=== PATIENT | male | born 1950 | race Caucasian/White ===

== ENCOUNTER 2016-07-11 17:23 | Emergency (ER) | payer OTHER ==
[~2016-07-11] VITALS: Ht 175.3 cm; Wt 222.0 kg
[~2016-07-11 17:23] MED LIST: A+D ZINC OXIDE113 GM TP; ALDACTONE25 MG PO; AMLODIPINE BESY10 MG PO; AMLODIPINE BESYL5 MG PO; ANTIFUNGAL15 G1 TP; ASPIRIN325 MG; ASPIRIN325 MG PO; ASPIRIN81 M2 PO; ATORVASTATIN CA80 MG PO; ATROVENT H200 INHALA IH; Aldactone PO; Augmentin PO; BACTRIM,SEPT1 TABLET PO; BACTROBAN CREAM15 GM TP; BACTROBAN TP; BAYER ASPIRIN325 M1 PO; BD INSULIN SYR 1 ML; BISOPROLOL FUMAR5 M1 PO; BISOPROLOL FUMAR5 MG PO; BUTALBITAL-APA1 EACH PO; CAPACET CAPSUL1 EACH PO; CARDIZEM CD240 MG PO; CEFTIN500 MG PO; CHLORZOXAZONE500 MG PO; COUMADIN2 MG PO; COUMADIN4 MG PO; COUMADIN5 MG PO; COUMADIN7.5 MG PO; CYMBALTA60 MG PO; Cardizem CD,LA,Cartia,Tiazac,Dilacor,Taztia PO; Cymbalta PO; DALIRESP500 MCG PO; DILAUDID2 MG PO; DILTIAZEM 24HR240 MG PO; DITROPAN XL10 MG PO; DITROPAN5 MG PO; DULCOLAX10 MG PR; DUONEB 2.5-0.5 M3 ML IH; ECOTRIN325 MG PO; ELAVIL50 MG PO; ERGOCALCIF50000 UNIT PO; ERGOCALCIFEROL; ESGIC 50-325-41 EACH PO; ESGIC CAPSULE1 EACH PO; Ecotrin PO; FEROSUL325 MG PO; FERROUS SULFAT325 MG PO; FIORICET,ESG1 TABLET PO; FLEET ENEMA-AD118 ML PR; FLORASTOR250 MG PO; FUROSEMIDE20 MG PO; FUROSEMIDE40 MG PO; FUROSEMIDE80 MG PO; Fioricet,Esgic,Repan PO; Flexeril PO; Furosemide PO; GABAPENTIN300 MG PO; HUMULIN R100 UNITS/ SC; HUMULIN R500 UNITS/ SC; HYDROPHOR OINT454 GM TP; IMDUR30 MG PO; IPRATR-ALBUTEROL3 ML IH; ISOSORBIDE DINI30 MG PO; ISOSORBIDE DINITRATE PO; ISOSORBIDE MONO30 MG PO; K-DUR10 MEQ PO; KETOCONAZOLE60 GM TP; LANTUS 10100 UNITS/ SC; LANTUS 3 M100 UNITS/ SC; LANTUS 3 M100 UNITS1 SC; LANTUS100 UNIT/1 SQ; LASIX40 MG PO; LASIX80 MG PO; LEVAQUIN750 MG PO; LEVEMIR FL100 UNIT/1 SC; LIPITOR80 MG PO; LISINOPRIL2.5 MG PO; LISINOPRIL20 MG PO; LITE COAT ASPI325 M1 PO; LOTRISONE15 GM TP; Lipitor PO; METOCLOPRAMIDE10 MG PO; METOLAZONE2.5 MG PO; MILK OF MAGN PO; MINOCIN PO; MINOCIN100 MG PO; MINOCIN50 MG PO; MINOCYCLINE HC100 M1 PO; MINOCYCLINE HC100 MG PO; NAPROSYN500 MG PO; NEURONTIN300 MG PO; NIASPAN,SLO-N1000 MG PO; NIASPAN1000 MG PO; NITROLINGUAL S4.9 GM MM; NIZORAL 2% CREA15 GM TP; NORVASC10 MG PO; NORVASC2.5 MG PO; NORVASC5 MG PO; NOVOLOG 10100 UNITS/ SC; NOVOLOG PE100 UNITS/ SC; NYSTOP60 GM; Niaspan,Slo-Niacin PO; Nizoral 2% Cream TP; Norvasc PO; OXAYDO5 MG PO; OXYBUTYNIN CHLOR5 M1 PO; OXYBUTYNIN CHLOR5 MG PO; OXYCODONE HCL5 M1 PO; OXYCODONE HCL5 MG; OXYCODONE HCL5 MG PO; OXYCODONE5 MG PO; OXYCONTIN20 MG; OXYCONTIN20 MG PO; OxyCONTIN PO; PANTOPRAZOLE SO40 MG PO; PARAFON FORTE500 MG PO; PLAVIX75 MG PO; PREDNISONE20 MG PO; PREDNISONE5 MG PO; PRINIVIL10 MG PO; PRINIVIL20 MG PO; PROAIR HFA8.5 GM IH; PROMETHAZINE HC25 M1 PO; PROTONIX40 MG PO; PROVENTIL HFA6.7 GM IH; PROVENTIL,2.5 MG/0.5 IH; PROVENTIL,2.5 MG/3 M IH; Proventil,Ventolin H IH; REGLAN10 M1 PO; REGLAN10 MG PO; REMEDY CALAZIM113 G2 TP; ROXICODONE5 MG PO; Reglan PO; SERTRALINE HCL100 MG PO; SINGULAIR10 MG PO; SPIRIVA1 INHALATI IH; SPIRONOLACTONE25 MG PO; ST. JOSEPH ASPI81 MG PO; SYMBICORT60 INHALA1; SYMBICORT60 INHALA1 IH; Singulair PO; Symbicort 80-4.5 mcg IH; THEO-24200 MG PO; THEO-DUR,THEOC100 MG PO; THEO-DUR,THEOC200 MG PO; Theo-Dur,Theocron PO; VITAMIN D; VITAMIN D-32000 UNI2 PO; VITAMIN D2000 UNIT PO; VITAMIN D22000 UNIT PO; VITAMIN D250000 UNIT PO; VITAMIN D32000 UNI1 PO; VITAMIN D5000 INTUN PO; VITD PO; Vitamin D, Drisdol PO; WARFARIN SODIUM4 MG PO; XARELTO20 MG PO; ZANAFLEX4 MG PO; ZEBETA5 MG PO; ZESTRIL,PRINIVI20 MG PO; Zebeta PO; Zestril,Prinivil PO; [UNRECOGNIZED DRUG - OTHER] IM; [UNRECOGNIZED DRUG - OTHER] PO; [UNRECOGNIZED DRUG - OTHER] PO; [UNRECOGNIZED DRUG - OTHER] PO; oxyCODONE PO
[2016-07-11 18:36] LABS: HEMATOCRIT 41.2 % (38.0-50.0); MCHC 31.6 G/DL (30.0-36.0); MCV 91.8 FL (86-99); MEAN PLAT.VOLUME 9.9 uM^3 (9.0-12.4); PLATELET COUNT 316 K/uL (156-360); RBC DIS.WIDTH-SD 58.6 % (39-53); RED BLOOD COUNT 4.49 M/uL (4.00-5.50)
[2016-07-11 18:41] LABS: CHLORIDE 92 mEq/L (99-109); EOSINOPHIL (%) 0.8 % (0-5); EOSINOPHIL COUNT 0.1 K/uL (0-0.3); IMMATURE GRANULOCYTE (%) 0.3 % (0.0-0.7); IMMATURE GRANULOCYTE COUNT 0.2 K/uL; LYMPHOCYTE COUNT 1.2 K/uL (1.0-2.8); MONOCYTE (%) 6.8 % (3-12); MONOCYTE COUNT 0.5 K/uL (0-0.8); NEUTROPHIL (%) 76.8 % (45-76); NEUTROPHIL COUNT 6.1 K/uL (1.8-6.4); POTASSIUM 3.4 mEq/L (3.7-5.4); SODIUM 142 mEq/L (136-147)
[2016-07-11 18:44] LABS: ANION GAP 16 MEQ/L (2-14)
[2016-07-11 18:45] LABS: TOTAL BILIRUBIN 0.5 mg/dL (0.0-1.0)
[2016-07-11 18:47] LABS: ALKALINE PHOSPHATASE 121 IU/L (3-129); GFR ESTIMATE (CALCULATED) > 59 mL/min/
[2016-07-11 18:48] LABS: UREA NITROGEN (BUN) 47 mg/dL (9-23)
[2016-07-11 18:51] LABS: GLUCOSE 402 mg/dL (70-99)
[2016-07-11 19:02] LABS: ADD MIUA? YES; BILIRUBIN SMALL; BLOOD TRACE; COLOR DK YELLOW ((YELLOW)); GLUCOSE (STRIP) 250; KETONES TRACE; LEUKOCYTES LARGE; NITRITE NEGATIVE; PH, URINE 8.5 (5-8); PROTEIN (STRIP) >=300; SPECIFIC GRAVITY 1.022 (1.000-1.030)
[2016-07-11] MEDS ORDERED: KEFLEX500 MG PO (22:09)
[2016-07-11 22:24] LABS: EPITHELIAL CELLS NONE SEEN; MUCUS NONE SEEN; RED BLOOD CELLS 0-5 /HPF (0-5)
[2016-07-11 22:25] LABS: AMORPHOUS PHOSPHATE CRYSTALS 2+; BACTERIA 2+; CASTS NONE SEEN /LPF; CRYSTALS PRESENT; UCUL ADDED? YES
[2016-07-12 02:01] VITALS: BP 104/51
== END 2016-07-12 03:31 | disposition home or self-care (01) ==
LOC: EME 17:23
PROVIDERS: Emergency Medicine
DX: N39.0 Urinary tract infection, site not specified (principal); E11.65 Type 2 diabetes mellitus with hyperglycemia; E66.01 Morbid (severe) obesity due to excess calories; Z68.45 Body mass index [BMI] 70 or greater, adult; I10 Essential (primary) hypertension; I25.2 Old myocardial infarction; J45.909 Unspecified asthma, uncomplicated; Z86.711 Personal history of pulmonary embolism; Z86.14 Personal history of Methicillin resistant Staphylococcus aureus infection; Z98.61 Coronary angioplasty status; Z79.4 Long term (current) use of insulin; Z79.82 Long term (current) use of aspirin; Z79.01 Long term (current) use of anticoagulants; Z87.891 Personal history of nicotine dependence
CPT/HCPCS: 80053; 81003; 82948; 83605; 85025; 87040; 87077; 87086; 87186; 99281; 99285; J0696; J2270; J2405; J7030; J7050

== ENCOUNTER 2016-07-16 17:17 | Observation (INO) | payer OTHER ==
[~2016-07-16] VITALS: Ht 175.3 cm; Wt 228.0 kg
[~2016-07-16 17:17] MED LIST changes: +KEFLEX500 MG PO
[2016-07-16 20:20] LABS: EOSINOPHIL (%) 2.6 % (0-5); EOSINOPHIL COUNT 0.2 K/uL (0-0.3); HEMATOCRIT 33.5 % (38.0-50.0); IMMATURE GRANULOCYTE (%) 0.6 % (0.0-0.7); IMMATURE GRANULOCYTE COUNT 0.4 K/uL; LYMPHOCYTE COUNT 1.2 K/uL (1.0-2.8); MCH 29.6 PG (29.0-34.0); MCHC 31.9 G/DL (30.0-36.0); MCV 92.8 FL (86-99); MEAN PLAT.VOLUME 11.2 uM^3 (9.0-12.4); MONOCYTE (%) 6.6 % (3-12); MONOCYTE COUNT 0.4 K/uL (0-0.8); NEUTROPHIL (%) 70.5 % (45-76); NEUTROPHIL COUNT 4.4 K/uL (1.8-6.4); PLATELET COUNT 245 K/uL (156-360); RBC DIS.WIDTH-CV 16.8 % (11.8-14.6); RBC DIS.WIDTH-SD 54.9 % (39-53); RED BLOOD COUNT 3.61 M/uL (4.00-5.50); WHITE BLOOD COUNT 6.2 K/uL (4.1-10.2)
[2016-07-16 20:28] LABS: CHLORIDE 90 mEq/L (99-109)
[2016-07-16 20:31] LABS: GLUCOSE 237 mg/dL (70-99); POTASSIUM 4.1 mEq/L (3.7-5.4); SODIUM 134 mEq/L (136-147)
[2016-07-16 20:32] LABS: ANION GAP 13 MEQ/L (2-14)
[2016-07-16 20:53] LABS: ALKALINE PHOSPHATASE 91 IU/L (3-129); GFR ESTIMATE (CALCULATED) 25 mL/min/; TOTAL BILIRUBIN 0.3 mg/dL (0.0-1.0); UREA NITROGEN (BUN) 77 mg/dL (9-23)
[2016-07-16 21:00] LABS: ADD MIUA? YES; BILIRUBIN NEGATIVE; BLOOD SMALL; COLOR YELLOW ((YELLOW)); GLUCOSE (STRIP) 100; KETONES NEGATIVE; LEUKOCYTES MODERATE; NITRITE NEGATIVE; PROTEIN (STRIP) 30; SPECIFIC GRAVITY 1.027 (1.000-1.030); UROBILINOGEN 0.2 MG/DL (0.2-1.0)
[2016-07-16 21:41] LABS: RED BLOOD CELLS 0-5 /HPF (0-5)
[2016-07-16 21:42] LABS: BACTERIA RARE; CASTS NONE SEEN /LPF; CRYSTALS NONE SEEN; EPITHELIAL CELLS NONE SEEN; MUCUS NONE SEEN; UCUL ADDED? NO
[2016-07-16] MEDS ORDERED: COUMADIN6 MG PO (23:56)
[2016-07-17] MEDS ORDERED: NOVOLOG PE100 UNITS/ SC
[2016-07-17] MEDS ORDERED: LANTUS 3 M100 UNITS1 SC
[2016-07-17] MEDS ORDERED: OXYBUTYNIN CHLOR5 M1 PO (00:01)
[2016-07-17] MEDS ORDERED: DALIRESP500 MCG PO (00:02)
[2016-07-17 01:17] LABS: POINT-OF-CARE METER ID UU13113702
[2016-07-17 01:27] LABS: INTER. NORMALIZED RATIO 1.6
[2016-07-17 02:27] LABS: TROP-I INTERPRETATION NEGATIVE; TROPONIN-I 0.02 ng/mL (0.0-0.30)
[2016-07-17 02:41] VITALS: BP 111/59
[2016-07-17 04:30] VITALS: BP 136/62
[2016-07-17 08:17] LABS: HEMATOCRIT 34.1 % (38.0-50.0); MCHC 30.2 G/DL (30.0-36.0); MCV 92.7 FL (86-99); MEAN PLAT.VOLUME 11.4 uM^3 (9.0-12.4); PLATELET COUNT 243 K/uL (156-360); RBC DIS.WIDTH-CV 16.9 % (11.8-14.6); RBC DIS.WIDTH-SD 57.5 % (39-53); RED BLOOD COUNT 3.68 M/uL (4.00-5.50); WHITE BLOOD COUNT 5.4 K/uL (4.1-10.2)
[2016-07-17 08:33] LABS: POINT-OF-CARE METER ID UU14162513
[2016-07-17 08:42] VITALS: BP 146/72
[2016-07-17 08:43] LABS: ALKALINE PHOSPHATASE 89 IU/L (3-129); ANION GAP 11 MEQ/L (2-14); CHLORIDE 91 MEQ/L (99-109); GFR ESTIMATE (CALCULATED) 36 mL/min/; GLUCOSE 136 mg/dL (70-99); SAMPLE HEMOLYSIS CHECK 0; SAMPLE ICTERIC CHECK 0; SAMPLE LIPEMIA CHECK 0; SODIUM 134 MEQ/L (136-147); TOTAL BILIRUBIN 0.3 MG/DL (0.0-1.0); UREA NITROGEN (BUN) 72 mg/dL (9-23)
[2016-07-17 08:51] LABS: EOSINOPHIL (%) 4.1 % (0-5); EOSINOPHIL COUNT 0.2 K/uL (0-0.3); IMMATURE GRANULOCYTE (%) 0.4 % (0.0-0.7); LYMPHOCYTE COUNT 1.3 K/uL (1.0-2.8); MONOCYTE (%) 9.6 % (3-12); MONOCYTE COUNT 0.5 K/uL (0-0.8); NEUTROPHIL (%) 62.3 % (45-76); NEUTROPHIL COUNT 3.4 K/uL (1.8-6.4)
[2016-07-17 09:19] LABS: TROP-I INTERPRETATION NEGATIVE; TROPONIN-I 0.02 ng/mL (0.0-0.30)
[2016-07-17 12:00] VITALS: BP 156/71
[2016-07-17 12:25] LABS: POINT-OF-CARE METER ID UU14162513
[2016-07-17 13:40] LABS: TROP-I INTERPRETATION NEGATIVE; TROPONIN-I 0.02 ng/mL (0.0-0.30)
[2016-07-17 13:43] LABS: INTER. NORMALIZED RATIO 1.5
[2016-07-17 16:00] VITALS: BP 137/87
[2016-07-17 20:27] VITALS: BP 85/50
[2016-07-17 21:28] LABS: POINT-OF-CARE METER ID UU13113700
[2016-07-18 00:37] VITALS: BP 112/55
[2016-07-18 04:22] VITALS: BP 134/58
[2016-07-18 04:41] LABS: POINT-OF-CARE METER ID UU14162513
[2016-07-18 06:42] LABS: HEMATOCRIT 29.9 % (38.0-50.0); MCH 29.4 PG (29.0-34.0); MCHC 32.1 G/DL (30.0-36.0); MCV 91.4 FL (86-99); MEAN PLAT.VOLUME 11.3 uM^3 (9.0-12.4); PLATELET COUNT 257 K/uL (156-360); RBC DIS.WIDTH-CV 16.8 % (11.8-14.6); RBC DIS.WIDTH-SD 55.6 % (39-53); RED BLOOD COUNT 3.27 M/uL (4.00-5.50); WHITE BLOOD COUNT 4.7 K/uL (4.1-10.2)
[2016-07-18 06:53] LABS: INTER. NORMALIZED RATIO 1.6; PROTHROMBIN TIME 16.7 (9.2-11.2)
[2016-07-18 07:01] LABS: ANION GAP 8 MEQ/L (2-14); CHLORIDE 92 MEQ/L (99-109); GFR ESTIMATE (CALCULATED) 43 mL/min/; GLUCOSE 155 mg/dL (70-99); POTASSIUM 4.3 MEQ/L (3.7-5.4); SAMPLE HEMOLYSIS CHECK 0; SAMPLE ICTERIC CHECK 0; SAMPLE LIPEMIA CHECK 0; SODIUM 134 MEQ/L (136-147); UREA NITROGEN (BUN) 74 mg/dL (9-23)
[2016-07-18 07:06] LABS: EOSINOPHIL (%) 4.5 % (0-5); EOSINOPHIL COUNT 0.2 K/uL (0-0.3); IMMATURE GRANULOCYTE (%) 0.6 % (0.0-0.7); LYMPHOCYTE COUNT 1.2 K/uL (1.0-2.8); MONOCYTE (%) 6.2 % (3-12); MONOCYTE COUNT 0.3 K/uL (0-0.8); NEUTROPHIL (%) 63.1 % (45-76)
[2016-07-18 08:13] VITALS: BP 138/65
[2016-07-18 08:46] LABS: POINT-OF-CARE METER ID UU14162513
[2016-07-18] MEDS ORDERED: KEFLEX500 MG PO (10:23)
[2016-07-18 10:51] LABS: CREATINE KINASE 72 IU/L (1-294); TOTAL CK 72 IU/L (1-294)
[2016-07-18 11:22] LABS: CK-MB 2.6 ng/mL (0.0-4.9)
[2016-07-18 12:12] VITALS: BP 124/58
[2016-07-18 12:43] LABS: POINT-OF-CARE METER ID UU14162513
== END 2016-07-18 14:46 | disposition home or self-care (01) ==
LOC: EME 17:17 → 5WEST 07-17 00:32 → EDOF 07-17 00:32 → 5WEST 07-17 01:31
PROVIDERS: Emergency Medicine; Internal Medicine; Student in an Organized Health Care Education/Training Program
DX: N39.0 Urinary tract infection, site not specified (principal); N17.9 Acute kidney failure, unspecified; E66.01 Morbid (severe) obesity due to excess calories; Z68.45 Body mass index [BMI] 70 or greater, adult; M25.511 Pain in right shoulder; M79.89 Other specified soft tissue disorders; E11.65 Type 2 diabetes mellitus with hyperglycemia; I10 Essential (primary) hypertension; E78.5 Hyperlipidemia, unspecified; I25.10 Atherosclerotic heart disease of native coronary artery without angina pectoris; Z98.61 Coronary angioplasty status; Z74.01 Bed confinement status; Z86.74 Personal history of sudden cardiac arrest; I25.2 Old myocardial infarction; G47.33 Obstructive sleep apnea (adult) (pediatric); I48.91 Unspecified atrial fibrillation; Z97.8 Presence of other specified devices; Z86.19 Personal history of other infectious and parasitic diseases; Z87.891 Personal history of nicotine dependence; Z79.01 Long term (current) use of anticoagulants; Z79.82 Long term (current) use of aspirin; Z79.4 Long term (current) use of insulin; Z91.19 Patient's noncompliance with other medical treatment and regimen
CPT/HCPCS: 80048; 80048 91; 80053; 81003; 82550; 82553; 82948; 83605; 84484; 85025; 85027; 85610; 87040; 93005; 93971; 94640; 94640 76; 94760; 94799; 99202; 99281; 99285; G0378; J0696; J1815; J7030; J7050

== ENCOUNTER 2016-11-09 16:42 | Inpatient (IN) | payer OTHER ==
[~2016-11-09] VITALS: Ht 175.3 cm; Wt 181.0 kg
[~2016-11-09 16:42] MED LIST changes: +COUMADIN6 MG PO
[2016-11-09 17:13] LABS: HEMATOCRIT 34.1 % (38.0-50.0); MCH 28.6 PG (29.0-34.0); MCHC 29.6 G/DL (30.0-36.0); MCV 96.6 FL (86-99); MEAN PLAT.VOLUME 9.2 uM^3 (9.0-12.4); PLATELET COUNT 339 K/uL (156-360); RBC DIS.WIDTH-CV 14.6 % (11.8-14.6); RBC DIS.WIDTH-SD 51.4 % (39-53); RED BLOOD COUNT 3.53 M/uL (4.00-5.50); WHITE BLOOD COUNT 11.1 K/uL (4.1-10.2)
[2016-11-09 17:22] LABS: CHLORIDE 88 mEq/L (99-109); POTASSIUM 4.3 mEq/L (3.7-5.4); SODIUM 137 mEq/L (136-147)
[2016-11-09 17:23] LABS: GLUCOSE 227 mg/dL (70-99)
[2016-11-09 17:24] LABS: INTER. NORMALIZED RATIO 1.4; PROTHROMBIN TIME 14.8 (9.2-11.2)
[2016-11-09 17:25] LABS: ANION GAP 11 MEQ/L (2-14)
[2016-11-09 17:27] LABS: GFR ESTIMATE (CALCULATED) 43 mL/min/
[2016-11-09 17:28] LABS: UREA NITROGEN (BUN) 54 mg/dL (9-23)
[2016-11-09 17:33] LABS: TROP-I INTERPRETATION NEGATIVE; TROPONIN-I 0.01 ng/mL (0.0-0.30)
[2016-11-09 22:11] LABS: CARBOXY HGB 0.3 % (0-5); METHEMOGLOBIN 0.4 % (0-1.5)
[2016-11-09 22:12] LABS: COMMENTS - BLOOD GASES A+C+ VENIUS BLOOD; DEVICE NC; O2 FLOW 5 L/MIN; PCO2 > 128 mm Hg (35-45); PO2 25 mm Hg (80-100); SITE RR; TOTAL RESP RATE 16 resp/min; pH 7.15 (7.35-7.45)
[2016-11-09 22:17] LABS: TOTAL BILIRUBIN 0.3 mg/dL (0.0-1.0)
[2016-11-09 22:18] LABS: ALKALINE PHOSPHATASE 118 IU/L (3-129)
[2016-11-09 22:21] LABS: DIRECT BILIRUBIN 0.2 mg/dL (0.0-0.3)
[2016-11-09 23:54] LABS: ADD MIUA? YES; BILIRUBIN SMALL; BLOOD LARGE; COLOR RED ((YELLOW)); GLUCOSE (STRIP) NEGATIVE; KETONES TRACE; LEUKOCYTES MODERATE; NITRITE NEGATIVE; PROTEIN (STRIP) 100; UROBILINOGEN 0.2 MG/DL (0.2-1.0)
[2016-11-09 23:58] LABS: BACTERIA 2+ /HPF; CASTS PRESENT /LPF; EPITHELIAL CELLS RARE /HPF; MUCUS 1+ /LPF; RED BLOOD CELLS TNTC /HPF (0-5); UCUL ADDED? YES; WHITE BLOOD CELLS TNTC /HPF (0-5)
[2016-11-09 23:59] LABS: COARSE GRANULAR CASTS RARE /LPF
[2016-11-10 00:20] VITALS: BP 151/54
[2016-11-10 04:12] LABS: METH RESISTANT S AUREUS PCR POSITIVE (NEGATIVE)
[2016-11-10 04:19] LABS: PROBE CHECK PASS
[2016-11-10 05:24] VITALS: BP 126/72
[2016-11-10 09:17] LABS: BASE EXCESS 14.1 mEq/L (-3 to +3); CARBOXY HGB 0.5 % (0-5); METHEMOGLOBIN 1.3 % (0-1.5)
[2016-11-10 09:18] LABS: BICARBONATE 40.5 mEq/L (22-26); DEVICE NC; O2 FLOW 3 L/MIN; PCO2 61 mm Hg (35-45); PO2 50 mm Hg (80-100); SITE RR; TOTAL RESP RATE 45 resp/min; pH 7.43 (7.35-7.45)
[2016-11-10 09:19] LABS: COMMENTS - BLOOD GASES A+C+
[2016-11-10 09:29] VITALS: BP 91/73
[2016-11-10 09:56] LABS: HEMATOCRIT 31.1 % (38.0-50.0); MCHC 30.9 G/DL (30.0-36.0); MEAN PLAT.VOLUME 9.9 uM^3 (9.0-12.4); PLATELET COUNT 292 K/uL (156-360); RBC DIS.WIDTH-CV 14.2 % (11.8-14.6); RED BLOOD COUNT 3.31 M/uL (4.00-5.50); WHITE BLOOD COUNT 8.9 K/uL (4.1-10.2)
[2016-11-10 10:04] LABS: CHLORIDE 92 mEq/L (99-109); POTASSIUM 5.1 mEq/L (3.7-5.4); SODIUM 138 mEq/L (136-147)
[2016-11-10 10:05] LABS: MAGNESIUM 1.7 mg/dL (1.3-2.7)
[2016-11-10 10:07] LABS: GLUCOSE 271 mg/dL (70-99)
[2016-11-10 10:08] LABS: ANION GAP 11 MEQ/L (2-14)
[2016-11-10 10:08] LABS: INTER. NORMALIZED RATIO 1.4; PROTHROMBIN TIME 14.2 (9.2-11.2)
[2016-11-10 10:09] LABS: TOTAL BILIRUBIN 0.3 mg/dL (0.0-1.0)
[2016-11-10 10:10] LABS: ALKALINE PHOSPHATASE 109 IU/L (3-129); GFR ESTIMATE (CALCULATED) 50 mL/min/
[2016-11-10 10:11] LABS: PTT 37.9 (25-32)
[2016-11-10 10:11] LABS: UREA NITROGEN (BUN) 51 mg/dL (9-23)
[2016-11-10 11:25] LABS: POINT-OF-CARE METER ID UU13113781
[2016-11-10 12:22] VITALS: BP 170/90
[2016-11-10 16:22] VITALS: BP 146/72
[2016-11-10 16:52] LABS: POINT-OF-CARE METER ID UU13113781
[2016-11-10 19:30] VITALS: BP 126/90
[2016-11-11] VITALS (7 sets, daily range): BP systolic 131–181; BP diastolic 71–98
[2016-11-11 07:40] LABS: EOSINOPHIL (%) 0 % (0-5); IMMATURE GRANULOCYTE (%) 1.5 % (0.0-0.7); IMMATURE GRANULOCYTE COUNT 0.2 K/uL; INSTRUMENT ABS NEUTROPHIL CT 9.8 K/uL; LYMPHOCYTE COUNT 0.8 K/uL (1.0-2.8); MCH 28.1 PG (29.0-34.0); MCHC 31.2 G/DL (30.0-36.0); MCV 90.2 FL (86-99); MEAN PLAT.VOLUME 10.7 uM^3 (9.0-12.4); MONOCYTE (%) 2.3 % (3-12); MONOCYTE COUNT 0.3 K/uL (0-0.8); NEUTROPHIL (%) 88.7 % (45-76); NEUTROPHIL COUNT 9.8 K/uL (1.8-6.4); RBC DIS.WIDTH-CV 14.5 % (11.8-14.6); RBC DIS.WIDTH-SD 47.4 % (39-53); RED BLOOD COUNT 3.66 M/uL (4.00-5.50)
[2016-11-11 07:40] LABS: INTER. NORMALIZED RATIO 1.6; PROTHROMBIN TIME 16.9 (9.2-11.2)
[2016-11-11 07:42] LABS: PLATELET COUNT 385 K/uL (156-360)
[2016-11-11 07:57] LABS: ANION GAP 15 MEQ/L (2-14); CHLORIDE 88 MEQ/L (99-109); GFR ESTIMATE (CALCULATED) > 59 mL/min/; GLUCOSE 284 mg/dL (70-99); POTASSIUM 4.4 MEQ/L (3.7-5.4); SAMPLE HEMOLYSIS CHECK 0; SAMPLE ICTERIC CHECK 0; SAMPLE LIPEMIA CHECK 0; SODIUM 135 MEQ/L (136-147); UREA NITROGEN (BUN) 55 mg/dL (9-23)
[2016-11-11 08:21] LABS: POINT-OF-CARE METER ID UU13113781
[2016-11-11 11:03] LABS: POINT-OF-CARE METER ID UU13113781
[2016-11-11 15:59] LABS: POINT-OF-CARE METER ID UU14188625
[2016-11-11 20:09] LABS: BICARBONATE 39.5 mEq/L (22-26); CARBOXY HGB 0.4 % (0-5); METHEMOGLOBIN 1.1 % (0-1.5); PO2 45 mm Hg (80-100)
[2016-11-11 20:10] LABS: COMMENTS - BLOOD GASES C+A+; PCO2 90 mm Hg (35-45); SITE RR; pH 7.25 (7.35-7.45)
[2016-11-11 20:11] LABS: DEVICE HFNC; O2 FLOW 15 L/MIN; TOTAL RESP RATE 22 resp/min
[2016-11-11 21:40] LABS: BASE EXCESS -2.2 mEq/L (-3 to +3); BICARBONATE 24.6 mEq/L (22-26); CARBOXY HGB 0.2 % (0-5); METHEMOGLOBIN 0.8 % (0-1.5); PCO2 50 mm Hg (35-45); PO2 72 mm Hg (80-100)
[2016-11-11 21:41] LABS: COMMENTS - BLOOD GASES C+; DEVICE AMBU; FI02 100 %; O2 FLOW 15 L/MIN; PEEP 20 CM/H20; SITE ALINE
[2016-11-11 22:09] LABS: HEMATOCRIT 36.4 % (38.0-50.0); MCH 28.9 PG (29.0-34.0); MCHC 31.3 G/DL (30.0-36.0); MCV 92.2 FL (86-99); PLATELET COUNT 552 K/uL (156-360); RBC DIS.WIDTH-CV 14.6 % (11.8-14.6); RBC DIS.WIDTH-SD 49.3 % (39-53); RED BLOOD COUNT 3.95 M/uL (4.00-5.50); WHITE BLOOD COUNT 26.6 K/uL (4.1-10.2)
[2016-11-11 22:17] LABS: ANION GAP 20 MEQ/L (2-14); CHLORIDE 90 MEQ/L (99-109); DIRECT BILIRUBIN 0.1 mg/dL (0.0-0.3); POTASSIUM 4.6 MEQ/L (3.7-5.4); SAMPLE HEMOLYSIS CHECK 0; SAMPLE ICTERIC CHECK 0; SAMPLE LIPEMIA CHECK 0; SODIUM 133 MEQ/L (136-147); TOTAL BILIRUBIN 0.6 MG/DL (0.0-1.0)
[2016-11-11 22:26] LABS: ALKALINE PHOSPHATASE 125 IU/L (3-129); GFR ESTIMATE (CALCULATED) 47 mL/min/; GLUCOSE 505 mg/dL (70-99); UREA NITROGEN (BUN) 59 mg/dL (9-23)
[2016-11-11 22:29] LABS: TROP-I INTERPRETATION INDETERMINATE; TROPONIN-I 0.36 ng/mL (0.0-0.30)
[2016-11-11 22:36] LABS: METH RESISTANT S AUREUS PCR POSITIVE (NEGATIVE)
[2016-11-11 22:39] LABS: PROBE CHECK PASS
[2016-11-12 00:30] VITALS: BP 170/98
[2016-11-12 00:49] LABS: BASE EXCESS 2.6 mEq/L (-3 to +3); BICARBONATE 27.2 mEq/L (22-26); CARBOXY HGB 0.2 % (0-5); COMMENTS - BLOOD GASES C+; DEVICE 840; FI02 100 %; MECHANICAL RATE 24 resp/min; METHEMOGLOBIN 1.2 % (0-1.5); MODE AC; PCO2 41 mm Hg (35-45); PEEP 20 CM/H20; PO2 270 mm Hg (80-100); SITE ALINE; TIDAL VOLUME 600 ML; TOTAL RESP RATE 24 resp/min; pH 7.43 (7.35-7.45)
[2016-11-12 01:00] VITALS: BP 0/0; BP 170/98
[2016-11-12 03:00] VITALS: BP 0/0; BP 170/98
[2016-11-12 05:26] LABS: BASOPHIL COUNT 0.1 K/uL (0-0.1); EOSINOPHIL (%) 0 % (0-5); IMMATURE GRANULOCYTE (%) 1.8 % (0.0-0.7); IMMATURE GRANULOCYTE COUNT 0.6 K/uL; INSTRUMENT ABS NEUTROPHIL CT 29.6 K/uL; LYMPHOCYTE COUNT 0.7 K/uL (1.0-2.8); MEAN PLAT.VOLUME 9.9 uM^3 (9.0-12.4); MONOCYTE (%) 4.7 % (3-12); MONOCYTE COUNT 1.5 K/uL (0-0.8); NEUTROPHIL (%) 91.2 % (45-76); NEUTROPHIL COUNT 29.6 K/uL (1.8-6.4); PLATELET COUNT 494 K/uL (156-360)
[2016-11-12 05:41] LABS: INTER. NORMALIZED RATIO 2.5
[2016-11-12 05:42] LABS: PROTHROMBIN TIME 26.4 (9.2-11.2)
[2016-11-12 05:44] LABS: TROP-I INTERPRETATION POSITIVE
[2016-11-12 06:09] LABS: TROPONIN-I 26.45 ng/mL (0.0-0.30)
[2016-11-12 06:19] LABS: HEMATOCRIT 34.3 % (38.0-50.0); MCH 29.1 PG (29.0-34.0); MCHC 32.7 G/DL (30.0-36.0); MCV 89.1 FL (86-99); RBC DIS.WIDTH-CV 14.6 % (11.8-14.6); RBC DIS.WIDTH-SD 47.2 % (39-53); RED BLOOD COUNT 3.85 M/uL (4.00-5.50)
[2016-11-12 06:28] LABS: WHITE BLOOD COUNT 32.5 K/uL (4.1-10.2)
[2016-11-12 06:31] LABS: ANION GAP 18 MEQ/L (2-14); CHLORIDE 92 MEQ/L (99-109); GFR ESTIMATE (CALCULATED) 38 mL/min/; GLUCOSE 318 mg/dL (70-99); POTASSIUM 3.7 MEQ/L (3.7-5.4); SAMPLE HEMOLYSIS CHECK 0; SAMPLE ICTERIC CHECK 0; SAMPLE LIPEMIA CHECK 0; SODIUM 136 MEQ/L (136-147); UREA NITROGEN (BUN) 67 mg/dL (9-23)
[2016-11-12 07:04] LABS: Estimated Average Glucose 192 mg/dL (70-123); HEMOGLOBIN A1c (GLYCOHEMOGLOB) 8.3 % HGB (Below 5.7)
[2016-11-12 07:38] LABS: POINT-OF-CARE USER ID 612031313
[2016-11-12 08:54] LABS: POINT-OF-CARE USER ID 612031313
[2016-11-12 09:51] LABS: MAGNESIUM 1.9 mg/dl (1.3-2.7)
[2016-11-12 09:54] LABS: POINT-OF-CARE USER ID 612031313
[2016-11-12 10:00] VITALS: BP 130/81
[2016-11-12 11:02] LABS: ADD MIUA? YES; BILIRUBIN NEGATIVE; BLOOD LARGE; COLOR YELLOW ((YELLOW)); GLUCOSE (STRIP) NEGATIVE; KETONES NEGATIVE; LEUKOCYTES MODERATE; NITRITE NEGATIVE; PROTEIN (STRIP) 100; SPECIFIC GRAVITY 1.015 (1.000-1.030); UROBILINOGEN 0.2 MG/DL (0.2-1.0)
[2016-11-12 11:23] LABS: BACTERIA RARE /HPF; EPITHELIAL CELLS RARE /HPF; GRANULAR CASTS 0-5 /LPF; MUCUS TRACE /LPF; WHITE BLOOD CELLS 20-30 /HPF (0-5)
[2016-11-12] MEDS ORDERED: LANTUS 10100 UNITS/ SC (11:31)
[2016-11-12] MEDS ORDERED: IMDUR30 MG PO (11:32)
[2016-11-12] MEDS ORDERED: ZESTRIL10 MG PO (11:32)
[2016-11-12] MEDS ORDERED: FUROSEMIDE40 MG PO (11:32)
[2016-11-12] MEDS ORDERED: NEURONTIN300 MG PO (11:32)
[2016-11-12] MEDS ORDERED: OXYBUTYNIN CHLOR5 M1 PO (11:33)
[2016-11-12] MEDS ORDERED: ELAVIL50 MG PO (11:33)
[2016-11-12] MEDS ORDERED: REGLAN10 MG PO (11:33)
[2016-11-12] MEDS ORDERED: PROTONIX40 MG PO (11:34)
[2016-11-12] MEDS ORDERED: SYMBICORT60 INHALA1 IH (11:35)
[2016-11-12] MEDS ORDERED: METOLAZONE2.5 MG PO (11:35)
[2016-11-12] MEDS ORDERED: OXAYDO5 MG PO (11:35)
[2016-11-12] MEDS ORDERED: DALIRESP500 MCG PO (11:36)
[2016-11-12] MEDS ORDERED: ATROVENT H200 INHALA IH (11:36)
[2016-11-12] MEDS ORDERED: ZANAFLEX4 M1 PO (11:36)
[2016-11-12] MEDS ORDERED: ZOLOFT100 MG PO (11:37)
[2016-11-12] MEDS ORDERED: NORVASC2.5 MG PO (11:37)
[2016-11-12] MEDS ORDERED: LIPITOR80 MG PO (11:38)
[2016-11-12] MEDS ORDERED: VENTOLIN HFA18 GM IH (11:38)
[2016-11-12] MEDS ORDERED: VITAMIN D2000 UNIT PO (11:39)
[2016-11-12] MEDS ORDERED: FEOSOL325 MG PO (11:39)
[2016-11-12] MEDS ORDERED: COUMADIN4 MG PO (11:39)
[2016-11-12] MEDS ORDERED: LO-DOSE ASPIRIN81 M1 PO (11:39)
[2016-11-12] MEDS ORDERED: DUONEB 2.5-0.5 M3 ML AEROSOL (11:40)
[2016-11-12] MEDS ORDERED: NOVOLOG 10100 UNITS/ SC (11:48)
[2016-11-12 11:53] LABS: POINT-OF-CARE USER ID 612031313
[2016-11-12 13:23] LABS: TROP-I INTERPRETATION POSITIVE; TROPONIN-I 31.16 ng/mL (0.0-0.30)
[2016-11-12 13:42] LABS: POINT-OF-CARE USER ID 612031313
[2016-11-12 15:42] LABS: POINT-OF-CARE USER ID 612031313
[2016-11-12 17:47] LABS: TROP-I INTERPRETATION POSITIVE; TROPONIN-I 29.96 ng/mL (0.0-0.30)
[2016-11-12 17:53] LABS: POINT-OF-CARE USER ID 612031313
[2016-11-12 17:56] LABS: INTER. NORMALIZED RATIO 4.2; PROTHROMBIN TIME 44.9 (9.2-11.2)
[2016-11-12 18:00] VITALS: BP 101/83
[2016-11-13] VITALS (18 sets, daily range): BP systolic 110–150; BP diastolic 66–98
[2016-11-13 01:23] LABS: TROP-I INTERPRETATION POSITIVE; TROPONIN-I 26.45 ng/mL (0.0-0.30)
[2016-11-13 02:04] LABS: CHLORIDE 98 mEq/L (99-109); POTASSIUM 4.1 mEq/L (3.7-5.4); SODIUM 138 mEq/L (136-147)
[2016-11-13 02:06] LABS: GLUCOSE 211 mg/dL (70-99)
[2016-11-13 02:07] LABS: ANION GAP 17 MEQ/L (2-14)
[2016-11-13 02:10] LABS: GFR ESTIMATE (CALCULATED) 32 mL/min/; UREA NITROGEN (BUN) 77 mg/dL (9-23)
[2016-11-13 06:07] LABS: TROP-I INTERPRETATION POSITIVE; TROPONIN-I 20.53 ng/mL (0.0-0.30)
[2016-11-13 06:29] LABS: HEMATOCRIT 31.9 % (38.0-50.0); INTER. NORMALIZED RATIO 3.5; MCH 29.6 PG (29.0-34.0); MCHC 32.6 G/DL (30.0-36.0); MCV 90.9 FL (86-99); PROTHROMBIN TIME 37.4 (9.2-11.2); RBC DIS.WIDTH-CV 14.6 % (11.8-14.6); RBC DIS.WIDTH-SD 48.8 % (39-53); RED BLOOD COUNT 3.51 M/uL (4.00-5.50)
[2016-11-13 06:32] LABS: WHITE BLOOD COUNT 17.9 K/uL (4.1-10.2)
[2016-11-13 06:46] LABS: EOSINOPHIL (%) 0 % (0-5); IMMATURE GRANULOCYTE (%) 1.1 % (0.0-0.7); IMMATURE GRANULOCYTE COUNT 0.2 K/uL; INSTRUMENT ABS NEUTROPHIL CT 15.7 K/uL; LYMPHOCYTE COUNT 1.3 K/uL (1.0-2.8); MEAN PLAT.VOLUME 11.1 uM^3 (9.0-12.4); MONOCYTE (%) 3.6 % (3-12); MONOCYTE COUNT 0.7 K/uL (0-0.8); NEUTROPHIL COUNT 15.7 K/uL (1.8-6.4); PLAT.SUFFICIENCY ADEQUATE
[2016-11-13 06:50] LABS: DIRECT BILIRUBIN 0.3 mg/dL (0.0-0.3); MAGNESIUM 1.9 mg/dl (1.3-2.7); TOTAL BILIRUBIN 0.7 MG/DL (0.0-1.0)
[2016-11-13 06:52] LABS: ALKALINE PHOSPHATASE 79 IU/L (3-129)
[2016-11-13 08:52] LABS: PLATELET COUNT 233 K/uL (156-360)
[2016-11-13 13:39] LABS: GLUCOSE 383 mg/dL (70-99)
[2016-11-13 14:24] LABS: POINT-OF-CARE USER ID 612031313
[2016-11-13 18:37] LABS: POINT-OF-CARE USER ID 612031313
[2016-11-13 19:40] LABS: POINT-OF-CARE METER ID UU13113731
[2016-11-13 20:39] LABS: CHLORIDE 96 mEq/L (99-109); POTASSIUM 3.5 mEq/L (3.7-5.4); SODIUM 138 mEq/L (136-147)
[2016-11-13 20:41] LABS: GLUCOSE 389 mg/dL (70-99)
[2016-11-13 20:43] LABS: ANION GAP 22 MEQ/L (2-14)
[2016-11-13 20:44] LABS: POINT-OF-CARE METER ID UU13113731
[2016-11-13 20:45] LABS: GFR ESTIMATE (CALCULATED) 29 mL/min/
[2016-11-13 20:46] LABS: UREA NITROGEN (BUN) 88 mg/dL (9-23)
[2016-11-13 21:37] LABS: POINT-OF-CARE METER ID UU13113731
[2016-11-13 22:52] LABS: POINT-OF-CARE METER ID UU13113731
[2016-11-14] VITALS (20 sets, daily range): BP systolic 91–132; BP diastolic 42–74
[2016-11-14 01:14] LABS: CHLORIDE 97 mEq/L (99-109); POTASSIUM 3.6 mEq/L (3.7-5.4); SODIUM 137 mEq/L (136-147)
[2016-11-14 01:17] LABS: ANION GAP 15 MEQ/L (2-14)
[2016-11-14 01:20] LABS: GFR ESTIMATE (CALCULATED) 28 mL/min/
[2016-11-14 01:31] LABS: GLUCOSE 292 mg/dL (70-99)
[2016-11-14 01:34] LABS: TROP-I INTERPRETATION POSITIVE; TROPONIN-I 9.33 ng/mL (0.0-0.30)
[2016-11-14 01:36] LABS: UREA NITROGEN (BUN) 91 mg/dL (9-23)
[2016-11-14 02:07] LABS: POINT-OF-CARE METER ID UU13113803
[2016-11-14 03:12] LABS: POINT-OF-CARE METER ID UU13113803
[2016-11-14 04:26] LABS: POINT-OF-CARE METER ID UU14174217
[2016-11-14 05:26] LABS: POINT-OF-CARE METER ID UU13113803
[2016-11-14 06:27] LABS: POINT-OF-CARE METER ID UU13113803
[2016-11-14 07:19] LABS: EOSINOPHIL (%) 0 % (0-5); HEMATOCRIT 32.1 % (38.0-50.0); IMMATURE GRANULOCYTE COUNT 0.2 K/uL; INSTRUMENT ABS NEUTROPHIL CT 16.2 K/uL; LYMPHOCYTE COUNT 0.7 K/uL (1.0-2.8); MCH 30.1 PG (29.0-34.0); MCHC 32.4 G/DL (30.0-36.0); MCV 92.8 FL (86-99); MEAN PLAT.VOLUME 11.3 uM^3 (9.0-12.4); MONOCYTE (%) 2.5 % (3-12); MONOCYTE COUNT 0.4 K/uL (0-0.8); NEUTROPHIL (%) 92.2 % (45-76); NEUTROPHIL COUNT 16.2 K/uL (1.8-6.4); NRBC (%) 0.5 /100 WBC (0-0); PLATELET COUNT 217 K/uL (156-360); RBC DIS.WIDTH-CV 14.8 % (11.8-14.6); RBC DIS.WIDTH-SD 50.3 % (39-53); RED BLOOD COUNT 3.46 M/uL (4.00-5.50); WHITE BLOOD COUNT 17.5 K/uL (4.1-10.2)
[2016-11-14 07:34] LABS: POINT-OF-CARE METER ID UU13113803
[2016-11-14 07:47] LABS: INTER. NORMALIZED RATIO 3.9; PROTHROMBIN TIME 41.3 (9.2-11.2)
[2016-11-14 08:25] LABS: POINT-OF-CARE METER ID UU13113803
[2016-11-14 08:48] LABS: TROP-I INTERPRETATION POSITIVE; TROPONIN-I 9.04 ng/mL (0.0-0.30)
[2016-11-14 09:15] LABS: ALKALINE PHOSPHATASE 75 IU/L (3-129); DIRECT BILIRUBIN 0.2 mg/dL (0.0-0.3)
[2016-11-14 09:18] LABS: ANION GAP 15 MEQ/L (2-14); CHLORIDE 96 MEQ/L (99-109); POTASSIUM 3.7 MEQ/L (3.7-5.4); SAMPLE HEMOLYSIS CHECK 0; SAMPLE ICTERIC CHECK 0; SAMPLE LIPEMIA CHECK 1; SODIUM 137 MEQ/L (136-147)
[2016-11-14 09:19] LABS: MAGNESIUM 2.2 mg/dl (1.3-2.7); TOTAL BILIRUBIN 0.5 MG/DL (0.0-1.0)
[2016-11-14 09:24] LABS: GFR ESTIMATE (CALCULATED) 31 mL/min/; GLUCOSE 170 mg/dL (70-99); UREA NITROGEN (BUN) 91 mg/dL (9-23)
[2016-11-14 09:37] LABS: POINT-OF-CARE METER ID UU13113803
[2016-11-14 10:34] LABS: POINT-OF-CARE METER ID UU13113803
[2016-11-14 11:17] LABS: BASE EXCESS 3.9 mEq/L (-3 to +3); BICARBONATE 28.5 mEq/L (22-26); COMMENTS - BLOOD GASES A+C+; PCO2 42 mm Hg (35-45); PO2 52 mm Hg (80-100); SITE LR; pH 7.44 (7.35-7.45)
[2016-11-14 11:18] LABS: DEVICE PB840; FI02 60 %; MODE PC
[2016-11-14 11:20] LABS: MECHANICAL RATE 20 resp/min; PEEP 10 CM/H20; PRESSURE CONTROL VENTILATION 12 CM H20
[2016-11-14 11:32] LABS: POINT-OF-CARE METER ID UU13113803
[2016-11-14 12:32] LABS: CHLORIDE 99 mEq/L (99-109); POTASSIUM 3.6 mEq/L (3.7-5.4); SODIUM 139 mEq/L (136-147)
[2016-11-14 12:34] LABS: GLUCOSE 151 mg/dL (70-99)
[2016-11-14 12:35] LABS: ANION GAP 17 MEQ/L (2-14)
[2016-11-14 12:37] LABS: GFR ESTIMATE (CALCULATED) 28 mL/min/
[2016-11-14 12:38] LABS: UREA NITROGEN (BUN) 90 mg/dL (9-23)
[2016-11-14 12:40] LABS: POINT-OF-CARE METER ID UU13113803
[2016-11-14 12:42] LABS: TROP-I INTERPRETATION POSITIVE; TROPONIN-I 7.14 ng/mL (0.0-0.30)
[2016-11-14 13:40] LABS: POINT-OF-CARE METER ID UU13113803
[2016-11-14 14:44] LABS: POINT-OF-CARE METER ID UU13113803
[2016-11-14 16:40] LABS: POINT-OF-CARE METER ID UU13113803
[2016-11-14 18:26] LABS: TROP-I INTERPRETATION POSITIVE; TROPONIN-I 8.07 ng/mL (0.0-0.30)
[2016-11-14 18:49] LABS: POINT-OF-CARE METER ID UU13113803
[2016-11-14 20:51] LABS: POINT-OF-CARE METER ID UU13113803
[2016-11-14 22:55] LABS: POINT-OF-CARE METER ID UU13113803
[2016-11-15] VITALS (21 sets, daily range): BP systolic 111–156; BP diastolic 59–73
[2016-11-15 00:46] LABS: POINT-OF-CARE METER ID UU13113803
[2016-11-15 01:09] LABS: CHLORIDE 99 mEq/L (99-109); POTASSIUM 3.7 mEq/L (3.7-5.4); SODIUM 139 mEq/L (136-147)
[2016-11-15 01:10] LABS: GLUCOSE 161 mg/dL (70-99)
[2016-11-15 01:11] LABS: ANION GAP 18 MEQ/L (2-14)
[2016-11-15 01:14] LABS: GFR ESTIMATE (CALCULATED) 28 mL/min/; UREA NITROGEN (BUN) 92 mg/dL (9-23)
[2016-11-15 01:26] LABS: TROP-I INTERPRETATION POSITIVE; TROPONIN-I 7.03 ng/mL (0.0-0.30)
[2016-11-15 01:41] LABS: POINT-OF-CARE METER ID UU14174217
[2016-11-15 02:39] LABS: POINT-OF-CARE METER ID UU14174217
[2016-11-15 03:38] LABS: POINT-OF-CARE METER ID UU14174217
[2016-11-15 04:48] LABS: POINT-OF-CARE METER ID UU14174217
[2016-11-15 05:53] LABS: POINT-OF-CARE METER ID UU14174217
[2016-11-15 06:04] LABS: EOSINOPHIL (%) 0 % (0-5); HEMATOCRIT 34.9 % (38.0-50.0); IMMATURE GRANULOCYTE (%) 1.3 % (0.0-0.7); IMMATURE GRANULOCYTE COUNT 0.2 K/uL; LYMPHOCYTE COUNT 0.6 K/uL (1.0-2.8); MCH 29.5 PG (29.0-34.0); MCHC 32.1 G/DL (30.0-36.0); MCV 91.8 FL (86-99); MEAN PLAT.VOLUME 11.7 uM^3 (9.0-12.4); MONOCYTE (%) 2.2 % (3-12); MONOCYTE COUNT 0.3 K/uL (0-0.8); NEUTROPHIL (%) 92.5 % (45-76); NRBC (%) 1.5 /100 WBC (0-0); PLATELET COUNT 234 K/uL (156-360); RBC DIS.WIDTH-CV 14.9 % (11.8-14.6); RBC DIS.WIDTH-SD 49.4 % (39-53); TROP-I INTERPRETATION POSITIVE; TROPONIN-I 6.29 ng/mL (0.0-0.30); WHITE BLOOD COUNT 15.1 K/uL (4.1-10.2)
[2016-11-15 06:29] LABS: PROTHROMBIN TIME 31.4 (9.2-11.2)
[2016-11-15 06:38] LABS: ALKALINE PHOSPHATASE 79 IU/L (3-129); AMYLASE 19 IU/L (1-118); DIRECT BILIRUBIN 0.3 mg/dL (0.0-0.3); LIPASE 21 U/L (1.0-51.0); MAGNESIUM 2.4 mg/dl (1.3-2.7); TOTAL BILIRUBIN 0.6 MG/DL (0.0-1.0); TRIGLYCERIDES 580 MG/DL (Normal: <150)
[2016-11-15 06:42] LABS: POINT-OF-CARE METER ID UU14174217
[2016-11-15 07:05] LABS: CREATINE KINASE 415 IU/L (1-294)
[2016-11-15 07:41] LABS: POINT-OF-CARE METER ID UU14174217
[2016-11-15 08:45] LABS: POINT-OF-CARE METER ID UU14174217
[2016-11-15 09:45] LABS: POINT-OF-CARE METER ID UU14174217
[2016-11-15 10:59] LABS: POINT-OF-CARE METER ID UU14174217
[2016-11-15 12:25] LABS: POINT-OF-CARE METER ID UU14174217
[2016-11-15 13:11] LABS: CHLORIDE 99 mEq/L (99-109); POTASSIUM 3.5 mEq/L (3.7-5.4); SODIUM 138 mEq/L (136-147)
[2016-11-15 13:13] LABS: GLUCOSE 152 mg/dL (70-99)
[2016-11-15 13:14] LABS: ANION GAP 15 MEQ/L (2-14)
[2016-11-15 13:17] LABS: GFR ESTIMATE (CALCULATED) 28 mL/min/
[2016-11-15 13:19] LABS: BASE EXCESS 4.4 mEq/L (-3 to +3); BICARBONATE 28.4 mEq/L (22-26); CARBOXY HGB 0 % (0-5); METHEMOGLOBIN 1.1 % (0-1.5); PCO2 39 mm Hg (35-45); PO2 53 mm Hg (80-100); pH 7.47 (7.35-7.45)
[2016-11-15 13:20] LABS: UREA NITROGEN (BUN) 101 mg/dL (9-23)
[2016-11-15 13:20] LABS: COMMENTS - BLOOD GASES A+C+; DEVICE VENT; FI02 70 %; MECHANICAL RATE 20 resp/min; MODE ACPC; PEEP 14 CM/H20; PRESSURE CONTROL VENTILATION 12 CM H20; SITE LR; TOTAL RESP RATE 20 resp/min
[2016-11-15 13:39] LABS: TROP-I INTERPRETATION POSITIVE; TROPONIN-I 5.39 ng/mL (0.0-0.30)
[2016-11-15 14:20] LABS: POINT-OF-CARE METER ID UU14174217
[2016-11-15 16:38] LABS: POINT-OF-CARE METER ID UU14174217
[2016-11-15 18:20] LABS: POINT-OF-CARE METER ID UU14174217
[2016-11-15 18:43] LABS: ANION GAP 12 MEQ/L (2-14); CHLORIDE 98 MEQ/L (99-109); GFR ESTIMATE (CALCULATED) 34 mL/min/; GLUCOSE 162 mg/dL (70-99); POTASSIUM 3.5 MEQ/L (3.7-5.4); SAMPLE HEMOLYSIS CHECK 0; SAMPLE ICTERIC CHECK 0; SAMPLE LIPEMIA CHECK 0; SODIUM 138 MEQ/L (136-147); UREA NITROGEN (BUN) 100 mg/dL (9-23)
[2016-11-15 19:16] LABS: HEMATOCRIT 36.1 % (38.0-50.0); MCH 28.6 PG (29.0-34.0); MCHC 31.3 G/DL (30.0-36.0); MCV 91.4 FL (86-99); NRBC (%) 1.1 /100 WBC (0-0); PLATELET COUNT 228 K/uL (156-360); RBC DIS.WIDTH-CV 14.8 % (11.8-14.6); RBC DIS.WIDTH-SD 49.2 % (39-53); RED BLOOD COUNT 3.95 M/uL (4.00-5.50); WHITE BLOOD COUNT 13.1 K/uL (4.1-10.2)
[2016-11-15 19:30] LABS: CHLORIDE 100 mEq/L (99-109); POTASSIUM 4.5 mEq/L (3.7-5.4); SODIUM 139 mEq/L (136-147)
[2016-11-15 19:32] LABS: GLUCOSE 181 mg/dL (70-99)
[2016-11-15 19:33] LABS: ANION GAP 17 MEQ/L (2-14)
[2016-11-15 19:36] LABS: GFR ESTIMATE (CALCULATED) 31 mL/min/
[2016-11-15 19:37] LABS: UREA NITROGEN (BUN) 100 mg/dL (9-23)
[2016-11-15 19:38] LABS: ALKALINE PHOSPHATASE 70 IU/L (3-129); TOTAL BILIRUBIN 0.5 mg/dL (0.0-1.0)
[2016-11-15 20:24] LABS: POINT-OF-CARE METER ID UU14174217
[2016-11-15 22:29] LABS: POINT-OF-CARE METER ID UU14174217
[2016-11-16] VITALS (24 sets, daily range): BP systolic 88–145; BP diastolic 32–82
[2016-11-16 00:19] LABS: POINT-OF-CARE METER ID UU14174217
[2016-11-16 00:49] LABS: POINT-OF-CARE METER ID UU14174217
[2016-11-16 01:29] LABS: TROPONIN-I 3.93 ng/mL (0.0-0.30)
[2016-11-16 01:30] LABS: TROP-I INTERPRETATION POSITIVE
[2016-11-16 01:32] LABS: CHLORIDE 102 mEq/L (99-109); SODIUM 141 mEq/L (136-147)
[2016-11-16 01:35] LABS: ANION GAP 13 MEQ/L (2-14)
[2016-11-16 01:39] LABS: UREA NITROGEN (BUN) 75 mg/dL (9-23)
[2016-11-16 01:41] LABS: GFR ESTIMATE (CALCULATED) 47 mL/min/; GLUCOSE 92 mg/dL (70-99); MAGNESIUM 2.2 mg/dL (1.3-2.7); POTASSIUM 3.5 mEq/L (3.7-5.4)
[2016-11-16 02:25] LABS: VANCOMYCIN, TROUGH 30.3 MCG/ML (10-20)
[2016-11-16 06:30] LABS: INTER. NORMALIZED RATIO 1.9
[2016-11-16 06:31] LABS: EOSINOPHIL (%) 0 % (0-5); IMMATURE GRANULOCYTE (%) 3.9 % (0.0-0.7); IMMATURE GRANULOCYTE COUNT 0.8 K/uL; INSTRUMENT ABS NEUTROPHIL CT 17.3 K/uL; LYMPHOCYTE COUNT 0.7 K/uL (1.0-2.8); MCH 28.5 PG (29.0-34.0); MCHC 30.8 G/DL (30.0-36.0); MCV 92.7 FL (86-99); MEAN PLAT.VOLUME 12.2 uM^3 (9.0-12.4); MONOCYTE (%) 3.3 % (3-12); MONOCYTE COUNT 0.6 K/uL (0-0.8); NEUTROPHIL (%) 89.2 % (45-76); NEUTROPHIL COUNT 17.3 K/uL (1.8-6.4); NRBC (%) 0.5 /100 WBC (0-0); PLATELET COUNT 254 K/uL (156-360); RBC DIS.WIDTH-CV 14.9 % (11.8-14.6); RBC DIS.WIDTH-SD 50.5 % (39-53)
[2016-11-16 06:32] LABS: WHITE BLOOD COUNT 19.4 K/uL (4.1-10.2)
[2016-11-16 06:46] LABS: MAGNESIUM 2.5 mg/dl (1.3-2.7)
[2016-11-16 06:57] LABS: ANION GAP 10 MEQ/L (2-14); CHLORIDE 102 MEQ/L (99-109); GFR ESTIMATE (CALCULATED) 50 mL/min/; MAGNESIUM 2.4 mg/dl (1.3-2.7); POTASSIUM 3.9 MEQ/L (3.7-5.4); SAMPLE HEMOLYSIS CHECK 0; SAMPLE ICTERIC CHECK 0; SAMPLE LIPEMIA CHECK 0; SODIUM 138 MEQ/L (136-147); TRIGLYCERIDES 270 MG/DL (Normal: <150); UREA NITROGEN (BUN) 61 mg/dL (9-23)
[2016-11-16 06:59] LABS: GLUCOSE 177 mg/dL (70-99)
[2016-11-16 07:35] LABS: DIGOXIN 1.1 ng/mL (0.8-2.0)
[2016-11-16 12:47] LABS: CHLORIDE 103 mEq/L (99-109); POTASSIUM 3.7 mEq/L (3.7-5.4); SODIUM 140 mEq/L (136-147)
[2016-11-16 12:48] LABS: MAGNESIUM 2.3 mg/dL (1.3-2.7)
[2016-11-16 12:49] LABS: GLUCOSE 195 mg/dL (70-99)
[2016-11-16 12:50] LABS: ANION GAP 14 MEQ/L (2-14)
[2016-11-16 12:53] LABS: GFR ESTIMATE (CALCULATED) 54 mL/min/
[2016-11-16 12:54] LABS: UREA NITROGEN (BUN) 61 mg/dL (9-23)
[2016-11-16 16:08] LABS: POINT-OF-CARE METER ID UU14174217
[2016-11-16 16:50] LABS: POINT-OF-CARE METER ID UU14174217
[2016-11-16 17:11] LABS: POINT-OF-CARE METER ID UU14174217
[2016-11-16 18:04] LABS: POINT-OF-CARE METER ID UU14174217
[2016-11-16 18:24] LABS: HEMATOCRIT 35.6 % (38.0-50.0); MCH 28.5 PG (29.0-34.0); MCHC 31.2 G/DL (30.0-36.0); MCV 91.5 FL (86-99); MEAN PLAT.VOLUME 12.3 uM^3 (9.0-12.4); NRBC (%) 0.3 /100 WBC (0-0); PLATELET COUNT 263 K/uL (156-360); RBC DIS.WIDTH-SD 49.2 % (39-53); RED BLOOD COUNT 3.89 M/uL (4.00-5.50); WHITE BLOOD COUNT 17.8 K/uL (4.1-10.2)
[2016-11-16 18:39] LABS: CHLORIDE 104 mEq/L (99-109); POTASSIUM 3.8 mEq/L (3.7-5.4); SODIUM 140 mEq/L (136-147)
[2016-11-16 18:40] LABS: MAGNESIUM 2.2 mg/dL (1.3-2.7)
[2016-11-16 18:41] LABS: GLUCOSE 197 mg/dL (70-99)
[2016-11-16 18:42] LABS: ANION GAP 12 MEQ/L (2-14)
[2016-11-16 18:45] LABS: GFR ESTIMATE (CALCULATED) 54 mL/min/
[2016-11-16 18:46] LABS: UREA NITROGEN (BUN) 53 mg/dL (9-23)
[2016-11-16 19:25] LABS: POINT-OF-CARE METER ID UU14174217
[2016-11-16 20:39] LABS: ABS NEUTROPHIL COUNT 16.2; ANISOCYTOSIS 2+; BURR CELLS 1+; EOSINOPHIL ABS CT 0; INSTRUMENT ABS NEUTROPHIL CT 15.4 K/uL; MACROCYTES 1+; POLYCHROMASIA 1+
[2016-11-17] VITALS (22 sets, daily range): BP systolic 93–149; BP diastolic 31–79
[2016-11-17 01:09] LABS: CHLORIDE 106 mEq/L (99-109); POTASSIUM 3.9 mEq/L (3.7-5.4); SODIUM 140 mEq/L (136-147)
[2016-11-17 01:10] LABS: MAGNESIUM 2.3 mg/dL (1.3-2.7)
[2016-11-17 01:12] LABS: ANION GAP 11 MEQ/L (2-14); GLUCOSE 113 mg/dL (70-99)
[2016-11-17 01:15] LABS: GFR ESTIMATE (CALCULATED) > 59 mL/min/
[2016-11-17 01:16] LABS: UREA NITROGEN (BUN) 48 mg/dL (9-23)
[2016-11-17 01:20] LABS: TROP-I INTERPRETATION POSITIVE; TROPONIN-I 2.23 ng/mL (0.0-0.30)
[2016-11-17 02:08] LABS: POINT-OF-CARE METER ID UU14174217
[2016-11-17 03:18] LABS: POINT-OF-CARE METER ID UU14174217
[2016-11-17 04:13] LABS: POINT-OF-CARE METER ID UU14174217
[2016-11-17 05:17] LABS: POINT-OF-CARE METER ID UU14174217
[2016-11-17 06:18] LABS: POINT-OF-CARE METER ID UU14174217
[2016-11-17 07:25] LABS: INTER. NORMALIZED RATIO 1.4; PROTHROMBIN TIME 14.9 (9.2-11.2); PTT 45.5 (25-32)
[2016-11-17 07:46] LABS: HEMATOCRIT 35.9 % (38.0-50.0); MCH 28.9 PG (29.0-34.0); MCHC 31.2 G/DL (30.0-36.0); MCV 92.8 FL (86-99); MEAN PLAT.VOLUME 12.4 uM^3 (9.0-12.4); NRBC (%) 0.2 /100 WBC (0-0); PLATELET COUNT 274 K/uL (156-360); RBC DIS.WIDTH-CV 15.2 % (11.8-14.6); RBC DIS.WIDTH-SD 49.2 % (39-53); RED BLOOD COUNT 3.87 M/uL (4.00-5.50)
[2016-11-17 08:11] LABS: MAGNESIUM 2.3 mg/dl (1.3-2.7); VANCOMYCIN, TROUGH 19.2 MCG/ML (10-20)
[2016-11-17 08:13] LABS: TROP-I INTERPRETATION POSITIVE; TROPONIN-I 2.36 ng/mL (0.0-0.30)
[2016-11-17 08:24] LABS: ABS NEUTROPHIL COUNT 19.3; BAND NEUTROPHILS 1.7 % (0-8.0); EOSINOPHIL ABS CT 0.2; EOSINOPHILS 0.9 % (0-5.0); LYMPHOCYTES 0.9 % (15.0-45.0); METAMYELOCYTES 2.6 %; SEG.NEUTROPHILS 90.4 % (46.0-76.0)
[2016-11-17 08:45] LABS: POINT-OF-CARE METER ID UU14174217
[2016-11-17 09:13] LABS: POINT-OF-CARE METER ID UU14174217
[2016-11-17 09:48] LABS: ANION GAP 11 MEQ/L (2-14); CHLORIDE 103 MEQ/L (99-109); GFR ESTIMATE (CALCULATED) > 59 mL/min/; GLUCOSE 228 mg/dL (70-99); MAGNESIUM 2.3 mg/dl (1.3-2.7); POTASSIUM 4.4 MEQ/L (3.7-5.4); SAMPLE HEMOLYSIS CHECK 0; SAMPLE ICTERIC CHECK 0; SAMPLE LIPEMIA CHECK 0; SODIUM 139 MEQ/L (136-147); UREA NITROGEN (BUN) 43 mg/dL (9-23)
[2016-11-17 10:27] LABS: POINT-OF-CARE METER ID UU14174217
[2016-11-17 11:32] LABS: POINT-OF-CARE METER ID UU14174217
[2016-11-17 13:18] LABS: POINT-OF-CARE METER ID UU14174217
[2016-11-17 14:08] LABS: ANION GAP 12 MEQ/L (2-14); CHLORIDE 103 MEQ/L (99-109); GFR ESTIMATE (CALCULATED) > 59 mL/min/; GLUCOSE 207 mg/dL (70-99); MAGNESIUM 2.4 mg/dl (1.3-2.7); POTASSIUM 4.1 MEQ/L (3.7-5.4); SAMPLE HEMOLYSIS CHECK 0; SAMPLE ICTERIC CHECK 0; SAMPLE LIPEMIA CHECK 0; SODIUM 138 MEQ/L (136-147); UREA NITROGEN (BUN) 40 mg/dL (9-23)
[2016-11-17 14:25] LABS: TROP-I INTERPRETATION POSITIVE; TROPONIN-I 2.19 ng/mL (0.0-0.30)
[2016-11-17 14:33] LABS: POINT-OF-CARE METER ID UU14174217
[2016-11-17 15:47] LABS: POINT-OF-CARE METER ID UU14174217
[2016-11-17 16:41] LABS: POINT-OF-CARE METER ID UU14174217
[2016-11-17 17:17] LABS: POINT-OF-CARE METER ID UU14174217
[2016-11-17 18:20] LABS: HEMATOCRIT 36.2 % (38.0-50.0); MCH 28.9 PG (29.0-34.0); MCHC 31.2 G/DL (30.0-36.0); MCV 92.6 FL (86-99); MEAN PLAT.VOLUME 11.8 uM^3 (9.0-12.4); NRBC (%) 0.2 /100 WBC (0-0); PLATELET COUNT 273 K/uL (156-360); RBC DIS.WIDTH-CV 15.9 % (11.8-14.6); RBC DIS.WIDTH-SD 49.7 % (39-53); RED BLOOD COUNT 3.91 M/uL (4.00-5.50); WHITE BLOOD COUNT 24.3 K/uL (4.1-10.2)
[2016-11-17 18:25] LABS: POINT-OF-CARE METER ID UU13113803
[2016-11-17 18:29] LABS: CHLORIDE 106 mEq/L (99-109); POTASSIUM 4.1 mEq/L (3.7-5.4); SODIUM 140 mEq/L (136-147)
[2016-11-17 18:30] LABS: MAGNESIUM 2.2 mg/dL (1.3-2.7)
[2016-11-17 18:31] LABS: GLUCOSE 173 mg/dL (70-99)
[2016-11-17 18:33] LABS: ANION GAP 12 MEQ/L (2-14)
[2016-11-17 18:35] LABS: GFR ESTIMATE (CALCULATED) > 59 mL/min/
[2016-11-17 18:36] LABS: UREA NITROGEN (BUN) 40 mg/dL (9-23)
[2016-11-17 18:41] LABS: TROP-I INTERPRETATION POSITIVE; TROPONIN-I 2.13 ng/mL (0.0-0.30)
[2016-11-17 19:30] LABS: POINT-OF-CARE METER ID UU13113803; POINT-OF-CARE USER ID RADDRS44
[2016-11-17 20:23] LABS: POINT-OF-CARE METER ID UU13113803; POINT-OF-CARE USER ID RADDRS44
[2016-11-17 21:38] LABS: POINT-OF-CARE METER ID UU13113803; POINT-OF-CARE USER ID RADDRS44
[2016-11-17 22:53] LABS: POINT-OF-CARE METER ID UU13113803; POINT-OF-CARE USER ID RADDRS44
[2016-11-17 23:33] LABS: POINT-OF-CARE METER ID UU13113803; POINT-OF-CARE USER ID RADDRS44
[2016-11-18] VITALS (24 sets, daily range): BP systolic 74–152; BP diastolic 27–71
[2016-11-18 00:39] LABS: POINT-OF-CARE METER ID UU13113803; POINT-OF-CARE USER ID RADDRS44
[2016-11-18 01:30] LABS: POINT-OF-CARE METER ID UU13113731; POINT-OF-CARE USER ID RADDRS44
[2016-11-18 02:00] LABS: CHLORIDE 106 mEq/L (99-109); POTASSIUM 4.1 mEq/L (3.7-5.4); SODIUM 139 mEq/L (136-147)
[2016-11-18 02:01] LABS: MAGNESIUM 2.2 mg/dL (1.3-2.7)
[2016-11-18 02:02] LABS: GLUCOSE 179 mg/dL (70-99)
[2016-11-18 02:04] LABS: ANION GAP 12 MEQ/L (2-14)
[2016-11-18 02:06] LABS: GFR ESTIMATE (CALCULATED) > 59 mL/min/
[2016-11-18 02:07] LABS: UREA NITROGEN (BUN) 39 mg/dL (9-23)
[2016-11-18 02:11] LABS: TROP-I INTERPRETATION POSITIVE; TROPONIN-I 2.14 ng/mL (0.0-0.30)
[2016-11-18 02:31] LABS: POINT-OF-CARE METER ID UU13113731; POINT-OF-CARE USER ID RADDRS44
[2016-11-18 04:08] LABS: ABS NEUTROPHIL COUNT 22.6; EOSINOPHIL ABS CT 0; INSTRUMENT ABS NEUTROPHIL CT 20.6 K/uL; LYMPHOCYTES 5.3 % (15.0-45.0); METAMYELOCYTES 1.8 %; SEG.NEUTROPHILS 92.9 % (46.0-76.0)
[2016-11-18 04:30] LABS: POINT-OF-CARE METER ID UU13113731; POINT-OF-CARE USER ID RADDRS44
[2016-11-18 06:08] LABS: HEMATOCRIT 34.9 % (38.0-50.0); MCH 30.1 PG (29.0-34.0); MCHC 32.1 G/DL (30.0-36.0); MCV 93.8 FL (86-99); MEAN PLAT.VOLUME 12.8 uM^3 (9.0-12.4); NRBC (%) 0.2 /100 WBC (0-0); PLATELET COUNT 274 K/uL (156-360); RBC DIS.WIDTH-CV 16.5 % (11.8-14.6); RBC DIS.WIDTH-SD 51.6 % (39-53); RED BLOOD COUNT 3.72 M/uL (4.00-5.50); WHITE BLOOD COUNT 27.1 K/uL (4.1-10.2)
[2016-11-18 06:34] LABS: TROP-I INTERPRETATION POSITIVE; TROPONIN-I 2.15 ng/mL (0.0-0.30)
[2016-11-18 06:36] LABS: ANION GAP 12 MEQ/L (2-14); CHLORIDE 103 MEQ/L (99-109); GFR ESTIMATE (CALCULATED) > 59 mL/min/; GLUCOSE 214 mg/dL (70-99); MAGNESIUM 2.4 mg/dl (1.3-2.7); POTASSIUM 4.5 MEQ/L (3.7-5.4); SAMPLE HEMOLYSIS CHECK 0; SAMPLE ICTERIC CHECK 0; SAMPLE LIPEMIA CHECK 0; SODIUM 138 MEQ/L (136-147); UREA NITROGEN (BUN) 39 mg/dL (9-23)
[2016-11-18 06:56] LABS: ABS NEUTROPHIL COUNT 25.2; EOSINOPHIL ABS CT 0.2; EOSINOPHILS 0.9 % (0-5.0); INSTRUMENT ABS NEUTROPHIL CT 23.2 K/uL; LYMPHOCYTES 2.6 % (15.0-45.0); METAMYELOCYTES 0.9 %
[2016-11-18 08:45] LABS: POINT-OF-CARE METER ID UU13113731
[2016-11-18 10:43] LABS: POINT-OF-CARE METER ID UU13113731; POINT-OF-CARE USER ID 606021424
[2016-11-18 11:35] LABS: HBSG INDEX 0.21
[2016-11-18 11:36] LABS: POINT-OF-CARE METER ID UU13113731
[2016-11-18 11:36] LABS: HPCA INDEX 0.09
[2016-11-18 12:30] LABS: BASE EXCESS -2.5 mEq/L (-3 to +3); BICARBONATE 21.4 mEq/L (22-26); CARBOXY HGB 0.4 % (0-5); METHEMOGLOBIN 1.1 % (0-1.5); PCO2 33 mm Hg (35-45); PO2 57 mm Hg (80-100); pH 7.42 (7.35-7.45)
[2016-11-18 12:31] LABS: COMMENTS - BLOOD GASES A+C+; CONTINUOUS POS AIRWAY PRESSURE 5 cm H2O; DEVICE 840; FI02 40 %; MODE SPONT; PRES. SUPPORT 10 CM/H2O; SITE LR; TOTAL RESP RATE 30 resp/min
[2016-11-18 13:17] LABS: ANION GAP 9 MEQ/L (2-14); CHLORIDE 104 MEQ/L (99-109); GFR ESTIMATE (CALCULATED) > 59 mL/min/; GLUCOSE 228 mg/dL (70-99); MAGNESIUM 2.4 mg/dl (1.3-2.7); POTASSIUM 4.2 MEQ/L (3.7-5.4); SAMPLE HEMOLYSIS CHECK 0; SAMPLE ICTERIC CHECK 0; SAMPLE LIPEMIA CHECK 0; SODIUM 138 MEQ/L (136-147); UREA NITROGEN (BUN) 37 mg/dL (9-23)
[2016-11-18 15:00] LABS: POINT-OF-CARE METER ID UU13113731
[2016-11-18 18:14] LABS: POINT-OF-CARE METER ID UU13113731
[2016-11-18 18:32] LABS: HEMATOCRIT 34.6 % (38.0-50.0); MCH 29.7 PG (29.0-34.0); MCHC 32.1 G/DL (30.0-36.0); MCV 92.5 FL (86-99); MEAN PLAT.VOLUME 12.2 uM^3 (9.0-12.4); NRBC (%) 0.1 /100 WBC (0-0); PLATELET COUNT 265 K/uL (156-360); RBC DIS.WIDTH-CV 16.4 % (11.8-14.6); RBC DIS.WIDTH-SD 49.8 % (39-53); RED BLOOD COUNT 3.74 M/uL (4.00-5.50); WHITE BLOOD COUNT 26.3 K/uL (4.1-10.2)
[2016-11-18 18:45] LABS: CHLORIDE 105 mEq/L (99-109); POTASSIUM 4.4 mEq/L (3.7-5.4); SODIUM 136 mEq/L (136-147)
[2016-11-18 18:46] LABS: MAGNESIUM 2.3 mg/dL (1.3-2.7)
[2016-11-18 18:47] LABS: GLUCOSE 335 mg/dL (70-99)
[2016-11-18 18:48] LABS: ANION GAP 11 MEQ/L (2-14)
[2016-11-18 18:51] LABS: GFR ESTIMATE (CALCULATED) > 59 mL/min/
[2016-11-18 18:52] LABS: UREA NITROGEN (BUN) 39 mg/dL (9-23)
[2016-11-18 19:43] LABS: ABS NEUTROPHIL COUNT 24.9; ATYPICAL LYMPHOCYTE 0.9 %; EOSINOPHIL ABS CT 0; INSTRUMENT ABS NEUTROPHIL CT 22.5 K/uL; LYMPHOCYTES 1.7 % (15.0-45.0); METAMYELOCYTES 0.9 %; SEG.NEUTROPHILS 94.7 % (46.0-76.0); SMUDGE CELLS 2.7
[2016-11-18 22:53] LABS: POINT-OF-CARE METER ID UU13113731; POINT-OF-CARE USER ID RADDRS44
[2016-11-19] VITALS (23 sets, daily range): BP systolic 83–160; BP diastolic 28–77
[2016-11-19 02:10] LABS: C DIFF TOXIN NEGATIVE (NEGATIVE)
[2016-11-19 02:14] LABS: PROBE CHECK PASS; SPECIMEN PROCESSING CONTROL PASS
[2016-11-19 02:53] LABS: POINT-OF-CARE USER ID RADDRS44
[2016-11-19 05:45] LABS: POINT-OF-CARE USER ID RADDRS44
[2016-11-19 06:13] LABS: MEAN PLAT.VOLUME 12.7 uM^3 (9.0-12.4); PLATELET COUNT 277 K/uL (156-360)
[2016-11-19 06:26] LABS: HEMATOCRIT 35.4 % (38.0-50.0); MCH 29.6 PG (29.0-34.0); MCHC 31.6 G/DL (30.0-36.0); MCV 93.7 FL (86-99); NRBC (%) 0.2 /100 WBC (0-0); RBC DIS.WIDTH-CV 16.7 % (11.8-14.6); RBC DIS.WIDTH-SD 50.2 % (39-53); RED BLOOD COUNT 3.78 M/uL (4.00-5.50)
[2016-11-19 06:27] LABS: WHITE BLOOD COUNT 30.6 K/uL (4.1-10.2)
[2016-11-19 06:45] LABS: ANION GAP 13 MEQ/L (2-14); CHLORIDE 104 MEQ/L (99-109); GFR ESTIMATE (CALCULATED) > 59 mL/min/; GLUCOSE 219 mg/dL (70-99); MAGNESIUM 2.5 mg/dl (1.3-2.7); POTASSIUM 4.6 MEQ/L (3.7-5.4); SAMPLE HEMOLYSIS CHECK 0; SAMPLE ICTERIC CHECK 0; SAMPLE LIPEMIA CHECK 0; SODIUM 139 MEQ/L (136-147); UREA NITROGEN (BUN) 38 mg/dL (9-23)
[2016-11-19 07:25] LABS: ATYPICAL LYMPHOCYTE 0.8 %; EOSINOPHIL ABS CT 0; INSTRUMENT ABS NEUTROPHIL CT 25.8 K/uL; LYMPHOCYTES 2.6 % (15.0-45.0); MYELOCYTES 2.6 %; SEG.NEUTROPHILS 91.4 % (46.0-76.0)
[2016-11-19 07:27] LABS: ANISOCYTOSIS 2+; BURR CELLS 2+; MACROCYTES 1+; MICROCYTOSIS 1+; OVALOCYTES 1+; PLAT.SUFFICIENCY ADEQUATE; POIKILOCYTOSIS 1+
[2016-11-19 07:42] LABS: DIGOXIN 0.9 ng/mL (0.8-2.0)
[2016-11-19 10:06] LABS: POINT-OF-CARE METER ID UU13113803
[2016-11-19 12:21] LABS: POINT-OF-CARE METER ID UU13113731; POINT-OF-CARE USER ID RADDRS44
[2016-11-19 12:50] LABS: ANION GAP 12 MEQ/L (2-14); CHLORIDE 104 MEQ/L (99-109); GFR ESTIMATE (CALCULATED) 54 mL/min/; GLUCOSE 300 mg/dL (70-99); MAGNESIUM 2.4 mg/dl (1.3-2.7); POTASSIUM 4.5 MEQ/L (3.7-5.4); SAMPLE HEMOLYSIS CHECK 0; SAMPLE ICTERIC CHECK 0; SAMPLE LIPEMIA CHECK 0; SODIUM 137 MEQ/L (136-147); UREA NITROGEN (BUN) 46 mg/dL (9-23)
[2016-11-19 13:50] LABS: POINT-OF-CARE METER ID UU13113803
[2016-11-19 18:00] LABS: POINT-OF-CARE METER ID UU13113803
[2016-11-19 18:02] LABS: HEMATOCRIT 33.7 % (38.0-50.0); MCH 29.2 PG (29.0-34.0); MCHC 31.5 G/DL (30.0-36.0); MCV 92.8 FL (86-99); NRBC (%) 0.2 /100 WBC (0-0); PLATELET COUNT 275 K/uL (156-360); RBC DIS.WIDTH-CV 16.9 % (11.8-14.6); RBC DIS.WIDTH-SD 50.9 % (39-53); RED BLOOD COUNT 3.63 M/uL (4.00-5.50); WHITE BLOOD COUNT 24.3 K/uL (4.1-10.2)
[2016-11-19 18:20] LABS: ANION GAP 14 MEQ/L (2-14); CHLORIDE 106 MEQ/L (99-109); GFR ESTIMATE (CALCULATED) 47 mL/min/; GLUCOSE 250 mg/dL (70-99); MAGNESIUM 2.4 mg/dl (1.3-2.7); POTASSIUM 4.2 MEQ/L (3.7-5.4); SAMPLE HEMOLYSIS CHECK 0; SAMPLE ICTERIC CHECK 0; SAMPLE LIPEMIA CHECK 0; SODIUM 139 MEQ/L (136-147); UREA NITROGEN (BUN) 53 mg/dL (9-23)
[2016-11-19 19:34] LABS: ABS NEUTROPHIL COUNT 21.9; ANISOCYTOSIS 1+; BAND NEUTROPHILS 1.5 % (0-8.0); EOSINOPHIL ABS CT 0; INSTRUMENT ABS NEUTROPHIL CT 20.8 K/uL; LYMPHOCYTES 0.5 % (15.0-45.0); MACROCYTES 1+; METAMYELOCYTES 1.5 %; MICROCYTOSIS 1+; PLAT.SUFFICIENCY ADEQUATE; POIKILOCYTOSIS 1+; SEG.NEUTROPHILS 88.5 % (46.0-76.0)
[2016-11-19 22:15] LABS: POINT-OF-CARE METER ID UU13113803; POINT-OF-CARE USER ID RADDRS44
[2016-11-20] VITALS (20 sets, daily range): BP systolic 84–166; BP diastolic 38–74
[2016-11-20 02:19] LABS: POINT-OF-CARE METER ID UU14174217; POINT-OF-CARE USER ID RADDRS44
[2016-11-20 05:56] LABS: POINT-OF-CARE METER ID UU13113803
[2016-11-20 07:53] LABS: ANION GAP 13 MEQ/L (2-14); CHLORIDE 106 MEQ/L (99-109); GFR ESTIMATE (CALCULATED) 38 mL/min/; GLUCOSE 201 mg/dL (70-99); MAGNESIUM 2.6 mg/dl (1.3-2.7); POTASSIUM 4.3 MEQ/L (3.7-5.4); SAMPLE HEMOLYSIS CHECK 0; SAMPLE ICTERIC CHECK 0; SAMPLE LIPEMIA CHECK 0; SODIUM 140 MEQ/L (136-147); UREA NITROGEN (BUN) 66 mg/dL (9-23)
[2016-11-20 07:54] LABS: ANION GAP 14 MEQ/L (2-14); CHLORIDE 106 MEQ/L (99-109); GFR ESTIMATE (CALCULATED) 38 mL/min/; GLUCOSE 201 mg/dL (70-99); MAGNESIUM 2.6 mg/dl (1.3-2.7); POTASSIUM 4.1 MEQ/L (3.7-5.4); SAMPLE HEMOLYSIS CHECK 0; SAMPLE ICTERIC CHECK 0; SAMPLE LIPEMIA CHECK 0; SODIUM 140 MEQ/L (136-147); UREA NITROGEN (BUN) 65 mg/dL (9-23)
[2016-11-20 08:02] LABS: HEMATOCRIT 32.5 % (38.0-50.0); MCH 29.1 PG (29.0-34.0); MCHC 30.8 G/DL (30.0-36.0); MCV 94.5 FL (86-99); MEAN PLAT.VOLUME 12.5 uM^3 (9.0-12.4); NRBC (%) 0.1 /100 WBC (0-0); PLATELET COUNT 220 K/uL (156-360); RBC DIS.WIDTH-CV 17.2 % (11.8-14.6); RED BLOOD COUNT 3.44 M/uL (4.00-5.50)
[2016-11-20 08:21] LABS: WHITE BLOOD COUNT 14.4 K/uL (4.1-10.2)
[2016-11-20 09:06] LABS: ABS NEUTROPHIL COUNT 13.1; EOSINOPHIL ABS CT 0.1; INSTRUMENT ABS NEUTROPHIL CT 11.9 K/uL
[2016-11-20 09:33] LABS: POINT-OF-CARE METER ID UU14174217
[2016-11-20 12:25] LABS: CHLORIDE 110 mEq/L (99-109); POTASSIUM 4.2 mEq/L (3.7-5.4); SODIUM 142 mEq/L (136-147)
[2016-11-20 12:26] LABS: MAGNESIUM 2.5 mg/dL (1.3-2.7)
[2016-11-20 12:27] LABS: GLUCOSE 237 mg/dL (70-99)
[2016-11-20 12:29] LABS: ANION GAP 15 MEQ/L (2-14)
[2016-11-20 12:31] LABS: GFR ESTIMATE (CALCULATED) 36 mL/min/
[2016-11-20 12:32] LABS: UREA NITROGEN (BUN) 70 mg/dL (9-23)
[2016-11-20 12:47] LABS: POINT-OF-CARE METER ID UU14174217
[2016-11-20 14:07] LABS: POINT-OF-CARE METER ID UU14174217
[2016-11-20 16:34] LABS: POINT-OF-CARE METER ID UU14174217
[2016-11-20 17:53] LABS: POINT-OF-CARE METER ID UU14174217
[2016-11-20 18:52] LABS: HEMATOCRIT 30.8 % (38.0-50.0); MCH 30.1 PG (29.0-34.0); MCHC 32.1 G/DL (30.0-36.0); MCV 93.6 FL (86-99); MEAN PLAT.VOLUME 12.4 uM^3 (9.0-12.4); NRBC (%) 0.2 /100 WBC (0-0); PLATELET COUNT 204 K/uL (156-360); RBC DIS.WIDTH-CV 17.2 % (11.8-14.6); RBC DIS.WIDTH-SD 52.6 % (39-53); RED BLOOD COUNT 3.29 M/uL (4.00-5.50); WHITE BLOOD COUNT 12.6 K/uL (4.1-10.2)
[2016-11-20 19:23] LABS: ANION GAP 15 MEQ/L (2-14); CHLORIDE 107 MEQ/L (99-109); GFR ESTIMATE (CALCULATED) 38 mL/min/; GLUCOSE 239 mg/dL (70-99); MAGNESIUM 2.6 mg/dl (1.3-2.7); POTASSIUM 4.1 MEQ/L (3.7-5.4); SAMPLE HEMOLYSIS CHECK 0; SAMPLE ICTERIC CHECK 0; SAMPLE LIPEMIA CHECK 0; SODIUM 140 MEQ/L (136-147); UREA NITROGEN (BUN) 76 mg/dL (9-23)
[2016-11-20 19:28] LABS: ABS NEUTROPHIL COUNT 11.5; ANISOCYTOSIS 2+; BURR CELLS 2+; EOSINOPHIL ABS CT 0; HEMATOLOGY COMMENT 1 SN; INSTRUMENT ABS NEUTROPHIL CT 10.2 K/uL; LYMPHOCYTES 3.5 % (15.0-45.0); MACROCYTES 1+; METAMYELOCYTES 2.6 %; MICROCYTOSIS 2+; MYELOCYTES 2.7 %; NUCLEATED RBC'S 0.9; PLAT.SUFFICIENCY ADEQUATE; POIKILOCYTOSIS 3+; SCHISTOCYTES 1+; SEG.NEUTROPHILS 91.2 % (46.0-76.0)
[2016-11-20 23:36] LABS: POINT-OF-CARE METER ID UU14174217
[2016-11-21] VITALS (23 sets, daily range): BP systolic 84–140; BP diastolic 43–81
[2016-11-21 03:23] LABS: POINT-OF-CARE METER ID UU13113803
[2016-11-21 05:38] LABS: POINT-OF-CARE METER ID UU13113803
[2016-11-21 07:08] LABS: HEMATOCRIT 30.6 % (38.0-50.0); MCH 30.5 PG (29.0-34.0); MCHC 32.4 G/DL (30.0-36.0); MCV 94.2 FL (86-99); MEAN PLAT.VOLUME 12.6 uM^3 (9.0-12.4); PLATELET COUNT 193 K/uL (156-360); RBC DIS.WIDTH-CV 17.4 % (11.8-14.6); RBC DIS.WIDTH-SD 52.1 % (39-53); RED BLOOD COUNT 3.25 M/uL (4.00-5.50); WHITE BLOOD COUNT 10.3 K/uL (4.1-10.2)
[2016-11-21 07:33] LABS: ANION GAP 13 MEQ/L (2-14); CHLORIDE 107 MEQ/L (99-109); GFR ESTIMATE (CALCULATED) 34 mL/min/; GLUCOSE 172 mg/dL (70-99); MAGNESIUM 2.5 mg/dl (1.3-2.7); POTASSIUM 4.2 MEQ/L (3.7-5.4); SAMPLE HEMOLYSIS CHECK 0; SAMPLE ICTERIC CHECK 0; SAMPLE LIPEMIA CHECK 0; SODIUM 142 MEQ/L (136-147); UREA NITROGEN (BUN) 82 mg/dL (9-23)
[2016-11-21 07:49] LABS: ABS NEUTROPHIL COUNT 8.5; ANISOCYTOSIS 1+; EOSINOPHIL ABS CT 0; INSTRUMENT ABS NEUTROPHIL CT 7.7 K/uL; LYMPHOCYTES 9.6 % (15.0-45.0); MACROCYTES 1+; METAMYELOCYTES 3.5 %; MYELOCYTES 1.7 %; PLAT.SUFFICIENCY ADEQUATE; SEG.NEUTROPHILS 82.6 % (46.0-76.0)
[2016-11-21 11:18] LABS: POINT-OF-CARE METER ID UU13113803
[2016-11-21 15:40] LABS: POINT-OF-CARE METER ID UU13113803
[2016-11-21 16:02] LABS: CHLORIDE 108 mEq/L (99-109); POTASSIUM 4.4 mEq/L (3.7-5.4); SODIUM 142 mEq/L (136-147)
[2016-11-21 16:03] LABS: GLUCOSE 211 mg/dL (70-99)
[2016-11-21 16:05] LABS: ANION GAP 15 MEQ/L (2-14)
[2016-11-21 16:07] LABS: GFR ESTIMATE (CALCULATED) 43 mL/min/
[2016-11-21 16:08] LABS: UREA NITROGEN (BUN) 65 mg/dL (9-23)
[2016-11-21 18:28] LABS: POINT-OF-CARE METER ID UU14174217
[2016-11-22] VITALS (16 sets, daily range): BP systolic 90–139; BP diastolic 37–64
[2016-11-22 01:36] LABS: CHLORIDE 107 mEq/L (99-109); POTASSIUM 4.2 mEq/L (3.7-5.4); SODIUM 142 mEq/L (136-147)
[2016-11-22 01:39] LABS: ANION GAP 13 MEQ/L (2-14)
[2016-11-22 01:41] LABS: GLUCOSE 201 mg/dL (70-99)
[2016-11-22 01:42] LABS: GFR ESTIMATE (CALCULATED) 41 mL/min/
[2016-11-22 01:46] LABS: UREA NITROGEN (BUN) 65 mg/dL (9-23)
[2016-11-22 02:47] LABS: POINT-OF-CARE METER ID UU14162636
[2016-11-22 03:23] LABS: HEMATOCRIT 28.3 % (38.0-50.0); MCHC 32.9 G/DL (30.0-36.0); MCV 91.3 FL (86-99); RBC DIS.WIDTH-CV 17.1 % (11.8-14.6); RBC DIS.WIDTH-SD 50.5 % (39-53); WHITE BLOOD COUNT 10.1 K/uL (4.1-10.2)
[2016-11-22 03:56] LABS: CHLORIDE 110 mEq/L (99-109); POTASSIUM 4.4 mEq/L (3.7-5.4); SODIUM 142 mEq/L (136-147)
[2016-11-22 03:57] LABS: MAGNESIUM 2.3 mg/dL (1.3-2.7)
[2016-11-22 04:01] LABS: ANION GAP 12 MEQ/L (2-14)
[2016-11-22 04:02] LABS: GLUCOSE 215 mg/dL (70-99)
[2016-11-22 04:04] LABS: GFR ESTIMATE (CALCULATED) 36 mL/min/
[2016-11-22 04:07] LABS: UREA NITROGEN (BUN) 68 mg/dL (9-23)
[2016-11-22 04:14] LABS: DIGOXIN 1.1 ng/mL (0.8-2.0)
[2016-11-22 05:02] LABS: ABS NEUTROPHIL COUNT 8.7; ANISOCYTOSIS 2+; BAND NEUTROPHILS 0.9 % (0-8.0); EOSINOPHIL ABS CT 0.2; EOSINOPHILS 1.9 % (0-5.0); INSTRUMENT ABS NEUTROPHIL CT 7.5 K/uL; LYMPHOCYTES 10.4 % (15.0-45.0); MACROCYTES 1+; OVALOCYTES 1+; PLAT.SUFFICIENCY ADEQUATE; POIKILOCYTOSIS 1+; SEG.NEUTROPHILS 84.9 % (46.0-76.0); SPHEROCYTES 1+
[2016-11-22 05:07] LABS: PLATELET COUNT 134 K/uL (156-360)
[2016-11-22 06:20] LABS: VANCOMYCIN, TROUGH 31.6 MCG/ML (10-20)
[2016-11-22 09:19] LABS: BASE EXCESS -1.3 mEq/L (-3 to +3); BICARBONATE 22.4 mEq/L (22-26); CARBOXY HGB 0.7 % (0-5); COMMENTS - BLOOD GASES +C; DEVICE PB840; FI02 30 %; METHEMOGLOBIN 0.8 % (0-1.5); MODE SPONT; PCO2 33 mm Hg (35-45); PEEP 5 CM/H20; PO2 50 mm Hg (80-100); PRES. SUPPORT 10 CM/H2O; SITE LR +A; TOTAL RESP RATE 40 resp/min; pH 7.44 (7.35-7.45)
[2016-11-22 09:55] LABS: AHBS INDEX 0; HEPATITIS B SURFACE ANTIBODY Nonreactive
[2016-11-22 11:01] LABS: POINT-OF-CARE USER ID NUTJLF39
[2016-11-22 14:11] LABS: POINT-OF-CARE USER ID NUTJLF39
[2016-11-22 16:06] LABS: BASE EXCESS -2.6 mEq/L (-3 to +3); BICARBONATE 21.4 mEq/L (22-26); CARBOXY HGB 0.5 % (0-5); METHEMOGLOBIN 1.1 % (0-1.5); PCO2 33 mm Hg (35-45); pH 7.42 (7.35-7.45)
[2016-11-22 16:07] LABS: COMMENTS - BLOOD GASES A+C+; DEVICE 840; PO2 77 mm Hg (80-100); SITE LR
[2016-11-22 16:08] LABS: FI02 40 %; MODE N/V SPONT; PEEP 5 CM/H20; PRES. SUPPORT 20 CM/H2O; TOTAL RESP RATE 24 resp/min
[2016-11-22 16:21] LABS: POINT-OF-CARE USER ID NUTJLF39
[2016-11-22 18:41] LABS: CHLORIDE 107 mEq/L (99-109); POTASSIUM 4.3 mEq/L (3.7-5.4); SODIUM 143 mEq/L (136-147)
[2016-11-22 18:42] LABS: GLUCOSE 152 mg/dL (70-99)
[2016-11-22 18:44] LABS: ANION GAP 15 MEQ/L (2-14)
[2016-11-22 18:46] LABS: GFR ESTIMATE (CALCULATED) 31 mL/min/
[2016-11-22 18:47] LABS: UREA NITROGEN (BUN) 80 mg/dL (9-23)
[2016-11-23] VITALS (18 sets, daily range): BP systolic 98–173; BP diastolic 33–120
[2016-11-23 05:45] LABS: EOSINOPHIL (%) 2.3 % (0-5); EOSINOPHIL COUNT 0.3 K/uL (0-0.3); HEMATOCRIT 31.5 % (38.0-50.0); IMMATURE GRANULOCYTE (%) 4.9 % (0.0-0.7); IMMATURE GRANULOCYTE COUNT 0.7 K/uL; INSTRUMENT ABS NEUTROPHIL CT 10.4 K/uL; MCH 29.6 PG (29.0-34.0); MCHC 31.4 G/DL (30.0-36.0); MCV 94.3 FL (86-99); MEAN PLAT.VOLUME 11.9 uM^3 (9.0-12.4); MONOCYTE (%) 10.1 % (3-12); MONOCYTE COUNT 1.5 K/uL (0-0.8); NEUTROPHIL COUNT 10.4 K/uL (1.8-6.4); PLATELET COUNT 107 K/uL (156-360); RBC DIS.WIDTH-CV 17.3 % (11.8-14.6); RBC DIS.WIDTH-SD 54.5 % (39-53); RED BLOOD COUNT 3.34 M/uL (4.00-5.50)
[2016-11-23 05:58] LABS: CHLORIDE 110 mEq/L (99-109); POTASSIUM 4.2 mEq/L (3.7-5.4); SODIUM 143 mEq/L (136-147)
[2016-11-23 05:59] LABS: MAGNESIUM 2.4 mg/dL (1.3-2.7)
[2016-11-23 06:01] LABS: ANION GAP 14 MEQ/L (2-14)
[2016-11-23 06:04] LABS: GFR ESTIMATE (CALCULATED) 32 mL/min/
[2016-11-23 06:05] LABS: UREA NITROGEN (BUN) 76 mg/dL (9-23)
[2016-11-23 06:10] LABS: GLUCOSE 55 mg/dL (70-99)
[2016-11-23 07:24] LABS: SAMPLE HEMOLYSIS CHECK 0; SAMPLE ICTERIC CHECK 0; SAMPLE LIPEMIA CHECK 0; VANCOMYCIN, TROUGH 29.2 MCG/ML (10-20)
[2016-11-23 09:10] LABS: POINT-OF-CARE METER ID UU13113803
[2016-11-23 11:43] LABS: POINT-OF-CARE METER ID UU13113803
[2016-11-23 20:44] LABS: ANION GAP 12 MEQ/L (2-14); CHLORIDE 106 MEQ/L (99-109); GFR ESTIMATE (CALCULATED) 34 mL/min/; POTASSIUM 4.5 MEQ/L (3.7-5.4); SAMPLE HEMOLYSIS CHECK 0; SAMPLE ICTERIC CHECK 0; SAMPLE LIPEMIA CHECK 0; SODIUM 141 MEQ/L (136-147); UREA NITROGEN (BUN) 72 mg/dL (9-23)
[2016-11-23 20:51] LABS: GLUCOSE 147 mg/dL (70-99)
[2016-11-24] VITALS (20 sets, daily range): BP systolic 94–144; BP diastolic 35–82
[2016-11-24 05:54] LABS: EOSINOPHIL (%) 1.9 % (0-5); EOSINOPHIL COUNT 0.2 K/uL (0-0.3); HEMATOCRIT 27.9 % (38.0-50.0); IMMATURE GRANULOCYTE (%) 2.1 % (0.0-0.7); IMMATURE GRANULOCYTE COUNT 0.2 K/uL; INSTRUMENT ABS NEUTROPHIL CT 8.7 K/uL; LYMPHOCYTE COUNT 1.3 K/uL (1.0-2.8); MCH 29.4 PG (29.0-34.0); MCHC 31.2 G/DL (30.0-36.0); MCV 94.3 FL (86-99); MEAN PLAT.VOLUME 10.9 uM^3 (9.0-12.4); MONOCYTE (%) 6.4 % (3-12); MONOCYTE COUNT 0.7 K/uL (0-0.8); NEUTROPHIL (%) 77.5 % (45-76); NEUTROPHIL COUNT 8.7 K/uL (1.8-6.4); RBC DIS.WIDTH-CV 17.1 % (11.8-14.6); RED BLOOD COUNT 2.96 M/uL (4.00-5.50); WHITE BLOOD COUNT 11.2 K/uL (4.1-10.2)
[2016-11-24 05:56] LABS: PLATELET COUNT 72 K/uL (156-360)
[2016-11-24 05:57] LABS: CHLORIDE 110 mEq/L (99-109); POTASSIUM 4.2 mEq/L (3.7-5.4); SODIUM 145 mEq/L (136-147)
[2016-11-24 05:58] LABS: MAGNESIUM 2.4 mg/dL (1.3-2.7)
[2016-11-24 06:00] LABS: ANION GAP 10 MEQ/L (2-14)
[2016-11-24 06:03] LABS: GFR ESTIMATE (CALCULATED) 31 mL/min/
[2016-11-24 06:04] LABS: UREA NITROGEN (BUN) 79 mg/dL (9-23)
[2016-11-24 06:22] LABS: GLUCOSE 109 mg/dL (70-99)
[2016-11-24 06:42] LABS: VANCOMYCIN, TROUGH 21.7 MCG/ML (10-20)
[2016-11-24 14:27] LABS: POINT-OF-CARE METER ID UU14162636
[2016-11-24 19:02] LABS: ANION GAP 14 MEQ/L (2-14); CHLORIDE 106 MEQ/L (99-109); GFR ESTIMATE (CALCULATED) 29 mL/min/; POTASSIUM 4.5 MEQ/L (3.7-5.4); SAMPLE HEMOLYSIS CHECK 0; SAMPLE ICTERIC CHECK 0; SAMPLE LIPEMIA CHECK 0; SODIUM 144 MEQ/L (136-147); UREA NITROGEN (BUN) 78 mg/dL (9-23)
[2016-11-24 19:57] LABS: GLUCOSE 179 mg/dL (70-99)
[2016-11-25] VITALS (18 sets, daily range): BP systolic 87–146; BP diastolic 31–64
[2016-11-25 05:24] LABS: MCH 30.3 PG (29.0-34.0); MCHC 31.9 G/DL (30.0-36.0); MCV 95.1 FL (86-99); MEAN PLAT.VOLUME 12.3 uM^3 (9.0-12.4); PLATELET COUNT 68 K/uL (156-360); RBC DIS.WIDTH-CV 17.1 % (11.8-14.6); RBC DIS.WIDTH-SD 53.9 % (39-53); RED BLOOD COUNT 2.84 M/uL (4.00-5.50); WHITE BLOOD COUNT 9.4 K/uL (4.1-10.2)
[2016-11-25 06:25] LABS: ANION GAP 14 MEQ/L (2-14); CHLORIDE 107 MEQ/L (99-109); GFR ESTIMATE (CALCULATED) 29 mL/min/; GLUCOSE 144 mg/dL (70-99); MAGNESIUM 2.6 mg/dl (1.3-2.7); POTASSIUM 4.4 MEQ/L (3.7-5.4); SAMPLE HEMOLYSIS CHECK 0; SAMPLE ICTERIC CHECK 0; SAMPLE LIPEMIA CHECK 0; SODIUM 145 MEQ/L (136-147); UREA NITROGEN (BUN) 75 mg/dL (9-23); VANCOMYCIN, TROUGH 24.5 MCG/ML (10-20)
[2016-11-25 11:18] LABS: POINT-OF-CARE METER ID UU14162636
[2016-11-25 14:52] LABS: DIGOXIN 2.1 ng/mL (0.8-2.0)
[2016-11-25 15:26] LABS: POINT-OF-CARE METER ID UU14162636
[2016-11-25 17:15] LABS: POINT-OF-CARE METER ID UU14162636
[2016-11-25 22:49] LABS: POINT-OF-CARE METER ID UU14162636
[2016-11-25 23:27] LABS: INTER. NORMALIZED RATIO 1.2; PROTHROMBIN TIME 12.7 (9.2-11.2); PTT 31.3 (25-32)
[2016-11-25 23:34] LABS: TOTAL BILIRUBIN 0.5 mg/dL (0.0-1.0)
[2016-11-25 23:35] LABS: ALKALINE PHOSPHATASE 85 IU/L (3-129)
[2016-11-25 23:37] LABS: DIRECT BILIRUBIN 0.3 mg/dL (0.0-0.3)
[2016-11-26] VITALS (24 sets, daily range): BP systolic 97–133; BP diastolic 37–70
[2016-11-26 03:09] LABS: POINT-OF-CARE METER ID UU13113731
[2016-11-26 05:53] LABS: HEMATOCRIT 26.9 % (38.0-50.0); MCH 29.9 PG (29.0-34.0); MCHC 30.5 G/DL (30.0-36.0); MCV 98.2 FL (86-99); PLATELET COUNT 51 K/uL (156-360); RBC DIS.WIDTH-CV 17.1 % (11.8-14.6); RBC DIS.WIDTH-SD 56.4 % (39-53); RED BLOOD COUNT 2.74 M/uL (4.00-5.50); WHITE BLOOD COUNT 6.9 K/uL (4.1-10.2)
[2016-11-26 06:25] LABS: POINT-OF-CARE METER ID UU13113731
[2016-11-26 07:11] LABS: ANION GAP 13 MEQ/L (2-14); CHLORIDE 110 MEQ/L (99-109); GFR ESTIMATE (CALCULATED) 24 mL/min/; GLUCOSE 157 mg/dL (70-99); MAGNESIUM 2.6 mg/dl (1.3-2.7); POTASSIUM 4.4 MEQ/L (3.7-5.4); SAMPLE HEMOLYSIS CHECK 0; SAMPLE ICTERIC CHECK 0; SAMPLE LIPEMIA CHECK 0; SODIUM 147 MEQ/L (136-147); UREA NITROGEN (BUN) 82 mg/dL (9-23); VANCOMYCIN, TROUGH 22.7 MCG/ML (10-20)
[2016-11-26 08:34] LABS: BICARBONATE 24.4 mEq/L (22-26); CARBOXY HGB 0.5 % (0-5); METHEMOGLOBIN 1.1 % (0-1.5); PCO2 61 mm Hg (35-45); PO2 50 mm Hg (80-100); pH 7.21 (7.35-7.45)
[2016-11-26 08:36] LABS: COMMENTS - BLOOD GASES A+C+; DEVICE HHFNC; FI02 100 %; O2 FLOW 70 L/MIN; SITE RR
[2016-11-26 11:32] LABS: BASE EXCESS -4.8 mEq/L (-3 to +3); BICARBONATE 22.4 mEq/L (22-26); CARBOXY HGB 0.6 % (0-5); METHEMOGLOBIN 0.6 % (0-1.5)
[2016-11-26 11:33] LABS: PCO2 51 mm Hg (35-45); PO2 62 mm Hg (80-100); pH 7.25 (7.35-7.45)
[2016-11-26 11:34] LABS: COMMENTS - BLOOD GASES NAC+; DEVICE 840; FI02 90 %; MECHANICAL RATE 20 resp/min; MODE A/C; PEEP 8 CM/H20; SITE LR; TIDAL VOLUME 440 ML; TOTAL RESP RATE 440 resp/min
[2016-11-26 11:47] LABS: POINT-OF-CARE METER ID UU14174217
[2016-11-26 14:11] LABS: Heparin Induced Plt Ab Positive (Negative)
[2016-11-26 15:06] LABS: POINT-OF-CARE METER ID UU13113731
[2016-11-26 17:10] LABS: POINT-OF-CARE METER ID UU13113731
[2016-11-26 20:19] LABS: DIGOXIN 2.6 ng/mL (0.8-2.0)
[2016-11-27] VITALS (24 sets, daily range): BP systolic 94–156; BP diastolic 34–99
[2016-11-27 03:32] LABS: POINT-OF-CARE METER ID UU13113803
[2016-11-27 05:59] LABS: HEMATOCRIT 24.9 % (38.0-50.0); MCH 30.2 PG (29.0-34.0); MCHC 30.9 G/DL (30.0-36.0); MCV 97.6 FL (86-99); MEAN PLAT.VOLUME 12.2 uM^3 (9.0-12.4); PLATELET COUNT 73 K/uL (156-360); RBC DIS.WIDTH-CV 17.4 % (11.8-14.6); RBC DIS.WIDTH-SD 57.1 % (39-53); RED BLOOD COUNT 2.55 M/uL (4.00-5.50); WHITE BLOOD COUNT 6.4 K/uL (4.1-10.2)
[2016-11-27 07:55] LABS: ANION GAP 13 MEQ/L (2-14); CHLORIDE 113 MEQ/L (99-109); GFR ESTIMATE (CALCULATED) 23 mL/min/; GLUCOSE 190 mg/dL (70-99); MAGNESIUM 2.6 mg/dl (1.3-2.7); POTASSIUM 4.3 MEQ/L (3.7-5.4); SAMPLE HEMOLYSIS CHECK 0; SAMPLE ICTERIC CHECK 0; SAMPLE LIPEMIA CHECK 0; SODIUM 148 MEQ/L (136-147); UREA NITROGEN (BUN) 83 mg/dL (9-23)
[2016-11-27 18:29] LABS: UFH SRA Result POSITIVE (Negative)
[2016-11-28] VITALS (17 sets, daily range): BP systolic 101–140; BP diastolic 40–66
[2016-11-28 05:21] LABS: HEMATOCRIT 24.9 % (38.0-50.0); MCH 31.2 PG (29.0-34.0); MCHC 31.7 G/DL (30.0-36.0); MCV 98.4 FL (86-99); MEAN PLAT.VOLUME 11.4 uM^3 (9.0-12.4); NRBC (%) 0.3 /100 WBC (0-0); PLATELET COUNT 53 K/uL (156-360); RBC DIS.WIDTH-CV 18.1 % (11.8-14.6); RBC DIS.WIDTH-SD 57.1 % (39-53); RED BLOOD COUNT 2.53 M/uL (4.00-5.50); WHITE BLOOD COUNT 6.1 K/uL (4.1-10.2)
[2016-11-28 05:48] LABS: ANION GAP 12 MEQ/L (2-14); CHLORIDE 110 MEQ/L (99-109); GFR ESTIMATE (CALCULATED) 22 mL/min/; GLUCOSE 277 mg/dL (70-99); MAGNESIUM 2.4 mg/dl (1.3-2.7); POTASSIUM 4.4 MEQ/L (3.7-5.4); SAMPLE HEMOLYSIS CHECK 0; SAMPLE ICTERIC CHECK 0; SAMPLE LIPEMIA CHECK 0; SODIUM 145 MEQ/L (136-147); UREA NITROGEN (BUN) 65 mg/dL (9-23)
[2016-11-28 12:09] LABS: POINT-OF-CARE METER ID UU14174217
[2016-11-28 18:03] LABS: POINT-OF-CARE METER ID UU13113803
[2016-11-29] VITALS (20 sets, daily range): BP systolic 87–130; BP diastolic 40–67
[2016-11-29 00:52] LABS: POINT-OF-CARE METER ID UU13113731
[2016-11-29 06:15] LABS: HEMATOCRIT 25.2 % (38.0-50.0); MCH 30.2 PG (29.0-34.0); MCHC 30.6 G/DL (30.0-36.0); MCV 98.8 FL (86-99); MEAN PLAT.VOLUME 11.6 uM^3 (9.0-12.4); NRBC (%) 0.5 /100 WBC (0-0); RBC DIS.WIDTH-CV 18.8 % (11.8-14.6); RBC DIS.WIDTH-SD 61.6 % (39-53); RED BLOOD COUNT 2.55 M/uL (4.00-5.50); WHITE BLOOD COUNT 5.9 K/uL (4.1-10.2)
[2016-11-29 06:17] LABS: PLATELET COUNT 70 K/uL (156-360)
[2016-11-29 07:54] LABS: ALKALINE PHOSPHATASE 100 IU/L (3-129); ANION GAP 12 MEQ/L (2-14); CHLORIDE 111 MEQ/L (99-109); GFR ESTIMATE (CALCULATED) 20 mL/min/; GLUCOSE 327 mg/dL (70-99); MAGNESIUM 2.5 mg/dl (1.3-2.7); POTASSIUM 4.6 MEQ/L (3.7-5.4); SAMPLE HEMOLYSIS CHECK 0; SAMPLE ICTERIC CHECK 0; SAMPLE LIPEMIA CHECK 0; SODIUM 145 MEQ/L (136-147); TOTAL BILIRUBIN 0.4 MG/DL (0.0-1.0); UREA NITROGEN (BUN) 76 mg/dL (9-23)
[2016-11-29 18:12] LABS: PCO2 54 mm Hg (35-45); PO2 28 mm Hg (80-100); SITE TLC; pH 7.33 (7.35-7.45)
[2016-11-29 18:13] LABS: HEMOGLOBIN 8.5 (12.5-16.6); O2 SATURATION (CALCULATED) 42.6 % (95-99)
[2016-11-29 18:14] LABS: POINT-OF-CARE METER ID UU13113731
[2016-11-30] VITALS (21 sets, daily range): BP systolic 94–138; BP diastolic 28–70
[2016-11-30 00:49] LABS: POINT-OF-CARE METER ID UU14162636
[2016-11-30 05:59] LABS: HEMATOCRIT 24.9 % (38.0-50.0); MCH 30.8 PG (29.0-34.0); MCHC 30.9 G/DL (30.0-36.0); MCV 99.6 FL (86-99); MEAN PLAT.VOLUME 12.1 uM^3 (9.0-12.4); NRBC (%) 0.5 /100 WBC (0-0); PLATELET COUNT 65 K/uL (156-360); RBC DIS.WIDTH-CV 19.4 % (11.8-14.6); RBC DIS.WIDTH-SD 63.8 % (39-53); WHITE BLOOD COUNT 5.6 K/uL (4.1-10.2)
[2016-11-30 06:40] LABS: POINT-OF-CARE USER ID 609231305
[2016-11-30 07:11] LABS: ANION GAP 12 MEQ/L (2-14); CHLORIDE 101 MEQ/L (99-109); GLUCOSE 307 mg/dL (70-99); MAGNESIUM 2.2 mg/dl (1.3-2.7); SAMPLE HEMOLYSIS CHECK 0; SAMPLE ICTERIC CHECK 0; SAMPLE LIPEMIA CHECK 0; UREA NITROGEN (BUN) 48 mg/dL (9-23)
[2016-11-30 07:15] LABS: GFR ESTIMATE (CALCULATED) 23 mL/min/; SODIUM 137 MEQ/L (136-147)
[2016-11-30 12:17] LABS: POINT-OF-CARE METER ID UU14174217
[2016-11-30 17:23] LABS: POINT-OF-CARE METER ID UU14174217
[2016-11-30 17:25] LABS: CARBON DIOXIDE (BICARBONATE) 28.5 MEQ/L (20-31)
[2016-12-01] VITALS (16 sets, daily range): BP systolic 92–139; BP diastolic 26–71
[2016-12-01 00:53] LABS: POINT-OF-CARE METER ID UU13113803
[2016-12-01 06:31] LABS: POINT-OF-CARE METER ID UU14174217
[2016-12-01 06:36] LABS: HEMATOCRIT 24.6 % (38.0-50.0); MCH 30.8 PG (29.0-34.0); MCHC 30.9 G/DL (30.0-36.0); MCV 99.6 FL (86-99); NRBC (%) 0.7 /100 WBC (0-0); PLATELET COUNT 81 K/uL (156-360); RBC DIS.WIDTH-CV 19.5 % (11.8-14.6); RBC DIS.WIDTH-SD 64.4 % (39-53); RED BLOOD COUNT 2.47 M/uL (4.00-5.50)
[2016-12-01 08:21] LABS: ANION GAP 11 MEQ/L (2-14); CHLORIDE 101 MEQ/L (99-109); CREATINE KINASE 73 IU/L (1-294); GFR ESTIMATE (CALCULATED) 17 mL/min/; GLUCOSE 346 mg/dL (70-99); MAGNESIUM 2.1 mg/dl (1.3-2.7); POTASSIUM 4.2 MEQ/L (3.7-5.4); SAMPLE HEMOLYSIS CHECK 0; SAMPLE ICTERIC CHECK 0; SAMPLE LIPEMIA CHECK 0; SODIUM 136 MEQ/L (136-147); UREA NITROGEN (BUN) 58 mg/dL (9-23)
[2016-12-01 13:08] LABS: POINT-OF-CARE METER ID UU14162636
[2016-12-02 23:16] LABS: ACETYLCHOLINE RECP BIND ABY+ <0.30 nmol/L (<=0.30)
== END 2016-12-01 23:40 | DRG 870 ==
LOC: EME 16:42 → 5SOUTH 22:41 → EDOF 22:41 → 4EAST 22:41 → 4WEST 22:41 → 4EAST 23:48 → 5SOUTH 11-11 12:29 → 4WEST 11-11 20:24
PROVIDERS: Emergency Medicine; Hospitalist; Internal Medicine; Internal Medicine Critical Care Medicine; Internal Medicine Nephrology; Internal Medicine Pulmonary Disease; Physician Assistant Medical; Psychiatry & Neurology Clinical Neurophysiology; Psychiatry & Neurology Neurology; Specialist
PROC: 5A09357 Assistance with Respiratory Ventilation, Less than 24 Consecutive Hours, Continuous Positive Airway Pressure (ICD-10-PCS; 2016-11-10)
PROC: 03HB33Z Insertion of Infusion Device into Right Radial Artery, Percutaneous Approach (ICD-10-PCS; principal; 2016-11-11)
PROC: 0BH17EZ Insertion of Endotracheal Airway into Trachea, Via Natural or Artificial Opening (ICD-10-PCS; principal; 2016-11-11)
PROC: 5A1955Z Respiratory Ventilation, Greater than 96 Consecutive Hours (ICD-10-PCS; principal; 2016-11-11)
PROC: 06HM33Z Insertion of Infusion Device into Right Femoral Vein, Percutaneous Approach (ICD-10-PCS; principal; 2016-11-11)
PROC: 05HN33Z Insertion of Infusion Device into Left Internal Jugular Vein, Percutaneous Approach (ICD-10-PCS; 2016-11-11)
PROC: 5A1D60Z (ICD-10-PCS; 2016-11-21)
PROC: 0BH17EZ Insertion of Endotracheal Airway into Trachea, Via Natural or Artificial Opening (ICD-10-PCS; 2016-11-26)
PROC: 5A1955Z Respiratory Ventilation, Greater than 96 Consecutive Hours (ICD-10-PCS; 2016-11-26)
DX: A41.9 Sepsis, unspecified organism (principal); J96.21 Acute and chronic respiratory failure with hypoxia; J96.22 Acute and chronic respiratory failure with hypercapnia; I21.4 Non-ST elevation (NSTEMI) myocardial infarction; J15.212 Pneumonia due to Methicillin resistant Staphylococcus aureus; G62.81 Critical illness polyneuropathy; I42.9 Cardiomyopathy, unspecified; Z68.45 Body mass index [BMI] 70 or greater, adult; Z51.5 Encounter for palliative care; Z66 Do not resuscitate; E66.2 Morbid (severe) obesity with alveolar hypoventilation; J44.0 Chronic obstructive pulmonary disease with (acute) lower respiratory infection; N17.9 Acute kidney failure, unspecified; E11.22 Type 2 diabetes mellitus with diabetic chronic kidney disease; L89.322 Pressure ulcer of left buttock, stage 2; L89.312 Pressure ulcer of right buttock, stage 2; L89.212 Pressure ulcer of right hip, stage 2; L89.222 Pressure ulcer of left hip, stage 2; E87.2 Acidosis; K21.9 Gastro-esophageal reflux disease without esophagitis; R33.9 Retention of urine, unspecified; J20.9 Acute bronchitis, unspecified; E78.5 Hyperlipidemia, unspecified; I25.10 Atherosclerotic heart disease of native coronary artery without angina pectoris; I48.2 Chronic atrial fibrillation; N18.3 Chronic kidney disease, stage 3 (moderate); I12.9 Hypertensive chronic kidney disease with stage 1 through stage 4 chronic kidney disease, or unspecified chronic kidney disease; I87.8 Other specified disorders of veins; I89.0 Lymphedema, not elsewhere classified; H10.33 Unspecified acute conjunctivitis, bilateral; I87.2 Venous insufficiency (chronic) (peripheral); R65.20 Severe sepsis without septic shock; F32.9 Major depressive disorder, single episode, unspecified; E11.42 Type 2 diabetes mellitus with diabetic polyneuropathy; L89.152 Pressure ulcer of sacral region, stage 2; D75.82 Heparin induced thrombocytopenia (HIT); J45.909 Unspecified asthma, uncomplicated; G43.909 Migraine, unspecified, not intractable, without status migrainosus; B96.4 Proteus (mirabilis) (morganii) as the cause of diseases classified elsewhere; D63.1 Anemia in chronic kidney disease; L98.421 Non-pressure chronic ulcer of back limited to breakdown of skin; B36.9 Superficial mycosis, unspecified; Z96.651 Presence of right artificial knee joint; Z99.81 Dependence on supplemental oxygen; Z87.891 Personal history of nicotine dependence; I25.2 Old myocardial infarction; Z98.61 Coronary angioplasty status; Z74.01 Bed confinement status; Z79.4 Long term (current) use of insulin; Z86.14 Personal history of Methicillin resistant Staphylococcus aureus infection; Z79.01 Long term (current) use of anticoagulants; Z82.49 Family history of ischemic heart disease and other diseases of the circulatory system; Z86.74 Personal history of sudden cardiac arrest; Z87.440 Personal history of urinary (tract) infections
CPT/HCPCS: 36600; 71010; 71250; 76770; 80048; 80048 91; 80053; 80069; 80076; 80162; 80202; 81003; 82085 90; 82150; 82330; 82550; 82550 91; 82607; 82803; 82810; 82948; 83036; 83605; 83690; 83735; 83880; 84100; 84238 90; 84439; 84443; 84478; 84484; 84999; 85025; 85025 91; 85027; 85610; 85730; 86022 90; 86703; 86705; 86706; 86803; 86900; 86901; 87040; 87070; 87077; 87086; 87106; 87147; 87186; 87205; 87340; 87493; 87641; 87801; 92610 GN; 93005; 93306; 94002; 94003; 94640; 94640 76; 94667; 94668; 94760; 94799; 99202; 99281; 99285; A6212; C1769; C1788; J0171; J0282; J0456; J0461; J0696; J0744; J0883; J1160; J1250; J1644; J1815; J1940; J1953; J2001; J2250; J2543; J2704; J2920; J2930; J3010; J3370; J7030; J7040; J7050; J7120; J7644; P9045; S0028